=== PATIENT | female | born 1970 | race Caucasian/White ===

== ENCOUNTER 2022-10-01 10:08 | Emergency (ER) | payer BC, SELFPAY ==
[2022-10-01] VITALS (7 sets, daily range): BP systolic 100–126; BP diastolic 67–80; PULSE 85–106; RESP 18; TEMP 36.1; O2SAT 93–97; BMI 38.4
--- NOTE | 2022-10-01 11:56 | CRLHL7_ITS ---
For Patients: As a result of the Century Cures Act, medical imaging exams and procedure reports are released immediately into your electronic medical record. You may view this report before your referring provider. If you have questions, please contact your health care provider. INDICATION: COVID positive, chest pain. TECHNIQUE: Chest 1 view(s) COMPARISON: Chest radiograph dated 07/08/2017. FINDINGS: Cardiomediastinal silhouette and pulmonary vasculature are normal. Haziness with blunting of the left costophrenic angle, may reflect atelectasis, small pleural effusion, or pneumonia. No significant right pleural effusion. No pneumothorax. No acute chest wall abnormality. IMPRESSION: Haziness with blunting of the left costophrenic angle, may reflect atelectasis, small pleural effusion, or pneumonia. Dictated by Sriram Lozada MD @ 10/01/2022 1:29:40 PM (Electronically Signed)
[2022-10-01 12:10] LABS: Basophils Absolute Auto 0.03 K/uL (0.00-0.30); Basophils Percent Auto 0.4 % (0.0-3.0); Eosinophils Absolute Auto 0.02 K/uL (0.00-0.50); Eosinophils Percent Auto 0.2 % (0.0-7.0); Hematocrit 39.1 % (33.0-51.0); Hemoglobin* 12.7 gm/dL (12.0-16.0); Immature Granulocytes Abs Auto 0.01 K/uL (0.00-0.30); Immature Granulocytes Pct Auto 0.1 %; Lymphocytes Percent Auto 15.8 % (20-44); Mean Corpuscular HGB Conc 33 gm/dL (32-36); Mean Corpuscular Hemoglobin 29 pg (26-34); Mean Corpuscular Volume 88 fL (80-100); Monocytes Percent Auto 10.7 % (0.0-11.0); Neutrophils Percent Auto 72.8 % (42.0-72.0); Platelet Count* 262 K/uL (140-440); RDW Coefficient of Variation % 13.3 % (11.5-15.5); Red Blood Count 4.44 m/uL (4.00-5.20)
[2022-10-01 12:12] LABS: Slide Review Reflex No
[2022-10-01 12:25] LABS: Chloride* 105 mmol/L (96-114); Potassium* 3.9 mmol/L (3.6-5.1); Sodium* 136 mmol/L (135-149)
[2022-10-01 12:28] LABS: Creatinine* 0.8 mg/dL (0.5-1.5); Est. Creatinine Clearance* 78.18; Estimated Glomerular Filt Rate 88 ml/min
[2022-10-01 12:29] LABS: Blood Urea Nitrogen* 12 mg/dL (7-30); Calcium* 9.3 mg/dL (8.4-10.6); Carbon Dioxide* 26 mmol/L (20-32); Glucose* 138 mg/dL (60-115)
[2022-10-01 12:32] LABS: C Reactive Protein* 3.4 mg/dL (0.5-1.0)
[2022-10-01 12:34] LABS: D Dimer Quantitative* 0.72 ug/ml (0.00-0.50)
--- NOTE | 2022-10-01 12:42 | ED.DIZZY ---
HPI - Dizziness General Date Seen: 10/01/22 Chief Complaint: Dizziness/Vertigo Stated Complaint: Covid+, chest pain/dizzy Time Seen by Provider: 10/01/22 11:34 Source: patient Mode of arrival: ambulatory Limitations: no limitations History of Present Illness HPI Narrative: Patient is a very nice 52-year-old female presents ambulatory to the emergency room, for evaluation of dizziness, and some chest pressure she has now had since yesterday. She tested COVID positive time at home this a.m., she has had no fevers or chills stuffy nose slight sore throat associated with this, she notes no syncopal at feeling, a little bit of exertional shortness of breath when she moves around more fatigued than anything. Denies any leg swelling, any nausea vomiting, diarrhea, she has no past history of pulmonary emboli DVTs, but does have a history of cardiac risk factors which are hypertension, high cholesterol, maternal grandmother did have heart disease in her early 60s. 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 Has fibromyalgia, hypertension, hyperlipidemia. MD elicited complaint: dizziness Related Data Home Medications Medication Instructions Recorded Confirmed escitalopram oxalate 20 mg tablet 20 mg PO DAILY 10/01/22 10/01/22 lisinopril 10 mg tablet 10 mg PO DAILY 10/01/22 10/01/22 omeprazole 20 mg capsule,delayed 20 mg PO DAILY 10/01/22 10/01/22 release pregabalin 150 mg capsule 150 mg PO 3XD 10/01/22 10/01/22 simvastatin 10 mg tablet 10 mg PO QPM 10/01/22 10/01/22 Previous Rx's Medication Instructions Recorded nirmatrelvir 300 mg (150 mg See Rx Instructions PO .COMPLEX 10/01/22 x2)-ritonavir 100 mg tablet,dose #30 ea pack(EUA) (Paxlovid) Allergies Allergy/AdvReac Type Severity Reaction Status Date / Time No Known Drug Allergies Allergy Verified 10/01/22 10:32 Review of Systems Status of ROS: Reports: 10 or more systems reviewed and unremarkable except as noted in History and below PFSH PFSH Social History Smoking Status: Never smoker Do you use any of these nicotine containing products: None Second hand tobacco smoke exposure: Yes How often do you have a drink containing alcohol: monthly or less How many standard drinks containing alcohol do you have on a typical day: 1 or 2 How often do you have six or more drinks on one occasion: Never AUDIT-C Alcohol total score: 1 Non-prescribed substance use: denies use service: No Exam Narrative: Exam Narrative: Patient is seen in room 7, she is in no apparent distress, Patient is speaking normally, no problem with slurring words, oriented x3. Cranial nerves 3-12 are normal, Head eyes ears nose and throat exam show equal pupils, no scleral icterus, extraocular muscles are normal, no facial droop, speech is normal, trachea normal and midline. Thyroid normal midline palpable not enlarged. Chest shows symmetrical rise bilaterally, normal auscultation with no wheezes, no increased work of breathing, no overt bruising or lesions seen, no tenderness is noted on auscultation. Heart sounds normal with no S3-S4 no murmurs clicks or gallops. Abdomen shows no obvious masses or hepatosplenomegaly, no organomegaly, bowel sounds are normal in all quadrants. No tenderness is noted also in all quadrants. Upper and lower extremities show normal power, normal range of motion, pulses are normal, sensations normal, fine motor movements are normal, pelvis is stable to rocking. Cervical spine shows normal range of motion, and palpably not tender. Thoracic spine shows normal range of motion, and palpably not tender, lumbar spine shows no tenderness to palpation percussion and is otherwise normal range of motion. Skin shows no rashes, petechiae or eccymosis. Const: Vital Signs, click to edit/add: Vital Signs - 24 hr 10/01/22 10:29 10/01/22 12:31 10/01/22 13:02 Temperature 96.9 F L Pulse Rate 87 97 Pulse Rate [Left P ulse Oximeter] 106 H Respiratory Rate 18 Blood Pressure 103/67 100/71 Blood Pressure [Le ft Upper Arm] 124/80 Pulse Oximetry 95 93 95 Oxygen Delivery Me thod Room Air 10/01/22 13:33 10/01/22 14:02 10/01/22 14:31 Temperature Pulse Rate 86 86 85 Pulse Rate [Left P ulse Oximeter] Respiratory Rate Blood Pressure 126/76 119/69 125/75 Blood Pressure [Le ft Upper Arm] Pulse Oximetry 96 97 97 Oxygen Delivery Me thod Documenting provider has reviewed patient's vital signs: yes Course Course Hospital Course: Discussed with the patient that her laboratory tests did show the elevated D-dimer we got subsequently got a chest CT did not show any PE. This is very reassuring, troponins x2 an EKG x2 was also reassuring. With no changes. At this point I think this is all part and parcel with her COVID, I discussed with her the use of Paxil of it of which she would be a candidate for. She is on the simvastatin which will have to be stopped, and then restarted 3 days after she finishes the Paxil of it. After discussion with her the risks benefits and side effects, she would like to proceed. We went over signs and symptoms of worsening of her COVID, and her infectious nature, she will follow up if these occur. Vital Signs Vital signs: Initial Vital Signs Temperature 96.9 F L 10/01/22 10:29 Temperature Source Temporal Artery Scan 10/01/22 10:29 Pulse Rate 106 H 10/01/22 10:29 Pulse Rhythm Regular 10/01/22 10:29 Pulse Strength 3+ Normal 10/01/22 10:29 Respiratory Rate 18 10/01/22 10:29 Blood Pressure 124/80 10/01/22 10:29 Blood Pressure Mean 94 10/01/22 10:29 Blood Pressure Position Sitting 10/01/22 10:29 Pulse Oximetry 95 10/01/22 10:29 Oxygen Delivery Method Room Air 10/01/22 10:29 Vital Signs Temperature 96.9 F L 10/01/22 10:29 Pulse Rate 106 H 10/01/22 10:29 Respiratory Rate 18 10/01/22 10:29 Blood Pressure 124/80 10/01/22 10:29 Pulse Oximetry 95 10/01/22 10:29 Oxygen Delivery Method Room Air 10/01/22 10:29 Temperature 96.9 F L 10/01/22 10:29 Pulse Rate 85 10/01/22 14:31 Respiratory Rate 18 10/01/22 10:29 Blood Pressure 125/75 10/01/22 14:31 Pulse Oximetry 97 10/01/22 14:31 Oxygen Delivery Method Room Air 10/01/22 10:29 MDM - Dizziness MDM Narrative Medical decision making narrative: During the evaluation of this patient I considered multiple differential diagnosis is. The life-threatening differential diagnosis include coronary disease/[place], pulmonary embolism, pneumothorax, pneumonia, and aortic dissection. Other differential diagnosis included but were not limited to pericarditis, myocarditis, chest wall pain, GERD, esophageal rupture, rib fracture contusion, pleurisy, as well as other etiologies. Medical Records Attestation: I reviewed the patient's medical records. Lab Data Attestation: I reviewed the patient's lab results. Labs: Lab Results 10/01/22 10/01/22 Range/Units 12:00 14:39 WBC 8.50 (4.50-11.00) K/uL RBC 4.44 (4.00-5.20) m/uL Hgb 12.7 (12.0-16.0) gm/dL Hct 39.1 (33.0-51.0) % MCV 88 (80-100) fL MCH 29 (26-34) pg MCHC 33 (32-36) gm/dL RDW Coeff of Zena 13.3 (11.5-15.5) % Plt Count 262 (140-440) K/uL Neut % (Auto) 72.8 H (42.0-72.0) % Lymph % (Auto) 15.8 L (20-44) % [place] % (Auto) 10.7 (0.0-11.0) % Eos % (Auto) 0.2 (0.0-7.0) % Baso % (Auto) 0.4 (0.0-3.0) % Neut # (Auto) 6.20 (1.7-7.0) K/uL Lymph # (Auto) 1.30 (0.90-2.90) K/uL [place] # (Auto) 0.90 (0.00-0.90) K/UL Eos # (Auto) 0.02 (0.00-0.50) K/uL Baso # (Auto) 0.03 (0.00-0.30) K/uL D-Dimer Quant (PE/DVT) 0.72 H (0.00-0.50) ug/ml Sodium 136 (135-149) mmol/L Potassium 3.9 (3.6-5.1) mmol/L Chloride 105 (96-114) mmol/L Carbon Dioxide 26 (20-32) mmol/L BUN 12 (7-30) mg/dL Creatinine 0.8 (0.5-1.5) mg/dL Estimated Creat Clear 78.18 Estimated GFR 88 ml/min Glucose 138 H (60-115) mg/dL Calcium 9.3 (8.4-10.6) mg/dL C-Reactive Protein 3.4 H (0.5-1.0) mg/dL POC Troponin I 0.00 L 0.00 L (0.01-0.04) ng/ml Imaging Data CT scan - chest: Attestation: I have reviewed the pertinent imaging results. My impression: Negative chest CT Radiologist's impression: Patient: NICK CHO Facility:?[facility] Patient ID:?[id number] Site Patient ID:?[id number]. Site :?[id number] Study:?CT Chest Angio 95CC ISOVUE 370-10/01/2022 1:37:21 PM Ordering Physician:Zoya Boles Final Report: INDICATION: Shortness of breath, COVID positive. TECHNIQUE: CT chest PE was acquired with 95 cc Isovue 370 IV contrast. COMPARISON: Chest radiographs dated 10/01/2022, 07/08/2017. FINDINGS: Heart and vasculature: No cardiomegaly, no pericardial effusion. No filling defects identified within the main, lobar, and contrast opacified portions of the segmental pulmonary arteries. Lungs and pleura: Subsegmental atelectasis in the base of the lingula and left lower lobe. No focal consolidation. No evidence of pulmonary infarct. 0.2 cm pulmonary nodule in the right upper lobe (series 5, image 50). Thyroid and lower neck: Subcentimeter thyroid nodules are noted. Mediastinum/gurjit: No lymphadenopathy. Chest wall: No axillary lymphadenopathy. Upper abdomen: Too small to characterize hypodense hepatic lesion, likely benign in the absence of a known malignancy. Postcholecystectomy. Bones: Multilevel degenerative changes of the spine. No suspicious/aggressive focal osseous lesion. IMPRESSION: 1. No evidence of acute pulmonary embolus. 2. Subsegmental atelectasis in the base of the lingula and left lower lobe. No focal consolidation. No evidence of pulmonary infarct. 3. 0.2 cm pulmonary nodule in the right upper lobe. Consider optional follow up CT chest in 12 months, per Fleischner guidelines. Please note that all CT scans at this facility use dose modulation, iterative reconstruction, and/or weight-based dosing when appropriate to reduce radiation dose to as low as reasonably achievable. Dictated by Sriram Lozada MD @ 10/01/2022 2:53:24 PM (Electronic Signature) ECG Data Attestation: I personally reviewed and interpreted this ECG as follows: ECG interpretation date: 10/01/22 Interpretation: EKG shows normal sinus rhythm, there is some ST wave flattening laterally, nonspecifically, I will search for normal EKG, no acute change Follow-up EKG shows no change from previous EKG, Discharge Plan Discharge Clinical Impression: COVID-19, Dizziness, Chest pain Patient Disposition: Home, Self-Care Condition: Stable Instructions: Chest Pain (DC), Dizziness (ED), COVID-19 (Coronavirus Disease 2019) (ED) Additional Instructions: Home rest you may use the Paxlovid as directed, you need to stop her simvastatin actually need to wait approximately 12 hours after last dose of simvastatin to to start the Paxil of it. Once you done the Paxlovid then wait 3 days and then restart the simvastatin. The medication really does help, the biggest risk with this medication is the risk of rebound, which happens at approximately 10% of the people. Return here if increasing chest pain shortness of breath or other symptoms, he obviously are contagious for 5-7 days after the symptoms started, please warn others. Activity Level: Light activity Prescriptions: New Paxlovid (EUA) 300 mg (150 mg x 2)-100 mg tablets,dose pack See Rx Instructions .ROUTE .COMPLEX Qty: 30 0RF Rx Instructions: take TWO 150 mg tablets of nirmatrelvir with ONE 100 mg tablet of ritonavir twice daily for 5 days No Action simvastatin 10 mg tablet 10 mg PO QPM lisinopril 10 mg tablet 10 mg PO DAILY omeprazole 20 mg capsule,delayed release(DR/EC) 20 mg PO DAILY escitalopram oxalate 20 mg tablet 20 mg PO DAILY pregabalin 150 mg capsule 150 mg PO 3XD Follow Up/Referrals: Dariana Jean MD [Primary Care Provider] - Stand Alone Forms: [employer] Info Instructions
--- NOTE | 2022-10-01 12:45 | CRLHL7_ITS ---
For Patients: As a result of the Century Cures Act, medical imaging exams and procedure reports are released immediately into your electronic medical record. You may view this report before your referring provider. If you have questions, please contact your health care provider. INDICATION: Shortness of breath, COVID positive. TECHNIQUE: CT chest PE was acquired with 95 cc Isovue 370 IV contrast. COMPARISON: Chest radiographs dated 10/01/2022, 07/08/2017. FINDINGS: Heart and vasculature: No cardiomegaly, no pericardial effusion. No filling defects identified within the main, lobar, and contrast opacified portions of the segmental pulmonary arteries. Lungs and pleura: Subsegmental atelectasis in the base of the lingula and left lower lobe. No focal consolidation. No evidence of pulmonary infarct. 0.2 cm pulmonary nodule in the right upper lobe (series 5, image 50). Thyroid and lower neck: Subcentimeter thyroid nodules are noted. Mediastinum/gurjit: No lymphadenopathy. Chest wall: No axillary lymphadenopathy. Upper abdomen: Too small to characterize hypodense hepatic lesion, likely benign in the absence of a known malignancy. Postcholecystectomy. Bones: Multilevel degenerative changes of the spine. No suspicious/aggressive focal osseous lesion. IMPRESSION: 1. No evidence of acute pulmonary embolus. 2. Subsegmental atelectasis in the base of the lingula and left lower lobe. No focal consolidation. No evidence of pulmonary infarct. 3. 0.2 cm pulmonary nodule in the right upper lobe. Consider optional follow up CT chest in 12 months, per Fleischner guidelines. Please note that all CT scans at this facility use dose modulation, iterative reconstruction, and/or weight-based dosing when appropriate to reduce radiation dose to as low as reasonably achievable. Dictated by Sriram Lozada MD @ 10/01/2022 2:53:24 PM (Electronically Signed)
[2022-10-01] MEDS: 0.9 % SODIUM CHLORIDE 1000 ml 1,000 ML IV (14:21)
== END 2022-10-01 16:23 | disposition home or self-care (01) ==
PROVIDERS: Emergency Provider Family Medicine; PCP Family Medicine
DX: U07.1 COVID-19 (principal); R42 Dizziness and giddiness; R07.9 Chest pain, unspecified
CPT/HCPCS: 36415; 71045; 71260; 80048; 84484; 85025; 85379; 86140; 93005; 96360; 99284; J7030; Q9967

== ENCOUNTER 2024-09-14 17:39 | Outpatient (CLI) | payer BC, SELFPAY | END 2024-09-14 17:40 | disposition home or self-care (01) | LOC: NFLDUCREF 17:48 | PROVIDERS: PCP Family Medicine | DX: R07.89 Other chest pain (principal) | CPT/HCPCS: 84484; 85379 ==

== ENCOUNTER 2024-09-14 19:58 | Emergency (ER) | payer BC, SELFPAY ==
--- OUTSIDE RECORDS SUMMARY | 2024-09-14 20:01 | XMS_ITS | Clinical Summary ---
Author Organization [facility] Address [address] [place] [id number] Care Team Providers Care Extension Service Specialist In Charge Name Role Phone Destiney Childress Primary Care Provider Allergies No known active allergies Medications cholecalciferol (VITAMIN D3) 1,000 unit capsule Take 1 Capsule (1,000 units) by mouth once daily. 0 02/20/20 22 Active escitalopram oxalate 20 mg tabletIndications :Dysthymia Take 1 Tablet (20 mg) by mouth once daily. 90 Tablet 3 5 3:35 PM CDT 10/07/19 24 Active fluticasone (50 mcg per actuation) nasal solution (FLONASE)Indicati ons:Rhinitis, unspecified type Inhale 2 Sprays to both nostrils once daily. 16 g 5 10/07/19 24 Active pregabalin 150 mg capsuleIndication s:Fibromyalgia Take 1 Capsule (150 mg) by mouth two times daily. 180 Capsule 3 5 3:35 PM CDT 10/07/19 24 Active acetaminophen (TYLENOL EXTRA STRGTH) 500 mg tabletIndications :Primary osteoarthritis of right hip Take 2 Tablets (1,000 mg) by mouth every 6 hours. Max acetaminophen dose: 4000mg in 24 hrs. 120 Tablet 4 8:56 AM COMMUNITY PLACEMENT WORKER 06/01/20 24 Active ibuprofen (ADVIL; MOTRIN) 600 mg tabletIndications :Primary osteoarthritis of right hip Take 1 Tablet (600 mg) by mouth every 6 hours. Maximum of 3200 mg in 24 hours. Take with food 60 Tablet 4 8:56 AM COMMUNITY PLACEMENT WORKER 06/01/20 24 Active omeprazole 20 mg Delayed-Release capsuleIndication s:Gastroesophagea l reflux disease, unspecified whether esophagitis present Take 1 Capsule (20 mg) by mouth once daily before a meal. 90 Capsule 2 5 3:52 PM CDT 06/16/19 25 Active lisinopriL 10 mg tabletIndications :HTN (hypertension) Take 1 Tablet (10 mg) by mouth once daily. 90 Tablet 2 5 3:52 PM CDT 06/16/19 25 Active simvastatin 10 mg tabletIndications :Hyperlipidemia, unspecified hyperlipidemia type Take 1 Tablet (10 mg) by mouth at bedtime. 90 Tablet 2 5 3:52 PM CDT 06/16/19 25 Active amoxicillin 500 mg capsuleIndication s:PROPHYLAXIS Take 4 capsules 1 hour prior to dental procedure or colonoscopy 4 Capsule 3 07/14/19 25 Active doxycycline monohydrate 100 mg capsuleIndication s:Sinusitis, unspecified chronicity, unspecified location Take 1 Capsule (100 mg) by mouth two times daily. 10 Capsule 5 5:10 PM COMMUNITY PLACEMENT WORKER 08/03/19 25 Active COVID-19 antigen test (Flowflex COVID-19 Ag Home Test) kit USE DIRECTED ON PACKAGING. 4 Kit 09/14/19 25 025 Discontin ued(Other - add note to specify (E-cancel not sent)) Active Problems Problem Noted Date Diagnosed Date S/p right total hip arthropl martha, DOS: 06/01/[address] Porter 06/14/2024 Primary osteoarthritis of right hip 06/01/2024 HTN (hypertension) 06/01/2024 S/P arthroscopy of left shoulder 11/11/2023 Nontraumatic complete tear of left rotator cuff 07/24/2023 Subacromial impingement of left shoulder 024 Subacromial bursitis of left shoulder joint 07/2023 Arthritis of left acromioclavicular joint 2023 Tendinitis of long head of biceps 06/17/2023 Hyperlipemia, mixed 03/05/2022 Depressive state 03/05/2022 Fibromyalgia 03/05/2022 L5-S1 left sided disc protrusion 06/17/2013 Resolved Problems Problem Noted Date Diagnosed Date Resolved Date Status post total left knee replacement 04/30/2022 07/31/2022 Hypotension 03/05/2022 07/31/2022 S/P left knee surgery 03/05/20222022 Dysthymia 03/05/2022 07/31/2022 Immunodeficiency 09/07/2021 07/31/2022 L4-5 right sided disc injury 06/17/2013 05/13/2023 Overview (06/17/2013): Primary osteoarthritis of left knee 07/31/2022 Encounters Date Type Department Care Team Description 08/03/2024 12:35 PM COMMUNITY PLACEMENT WORKER Telemedicine [facility] [address] [place] [address] Emma Estrada NP Telehealth (VV no vitals taken); Sinus Problem 07/14/2024 10:00 AM COMMUNITY PLACEMENT WORKER Office Visit [facility] [id number] [place] [phone] Jose Porter MD Surgical Followup (S/p right total hip arthroplasty, DOS: 06/01/[address] Porter) 07/14/2024 Travel 06/17/2024 9:05 AM COMMUNITY PLACEMENT WORKER Ancillary Procedure [address] [address] 06/17/2024 9:00 AM COMMUNITY PLACEMENT WORKER Office Visit [address] [address] Ankita Winters PA Surgical Followup (S/p right total hip arthroplasty, DOS: 06/01/[address] Porter) 06/16/2024 Travel from Last 3 Months Immunizations Immunization Administration Dates Next Due COVID-19 VACCINE SPIKEVAX (M ODERNA 50MCG/0.5ML) 12YO+ PFS 04/19/2024,04/02/2023 COVID-19 vaccine (Pfizer-Bio NTech 30mcg/0.3mL) 12YO+ BIVALENT PF, MDV 04/19/2022 COVID-19 vaccine (Pfizer-Bio NTech 30mcg/0.3mL) 12YO+ DEANNE-SUCROSE PF, MDV 10/03/2021 COVID-19 vaccine (Cubeyou NTech 30mcg/0.3mL) PF, MDV 03/13/2021,07/27/2020,07/06/2020 INFLUENZA, IIV3 PF (AGE >= 6 MO) 04/19/2024 Influenza A (H1N1), Inactiva santos (Age >=3 Years) 04/20/2009 Influenza, IIV3 (Age 6-35 mos) 4,03/24/2013,05/03/2011,2008 Influenza, IIV3 (Age >=3 years) 03/21/2012,04/30,05/09/2003 Influenza, IIV4 04/02/2023, 2,03/13/2021,2018,03/16/2019,04/25/2017 Influenza,CCIIV4 PRESERV FREE 05/16/2020 Td (Age >=7 Years) 10/02/2004 Tdap 11/30/2015 Tetanus/Diptheria 10/02/2004 Zoster (Shingrix-RZV, recombinant) 05/16/2020,,02/11/2020 Family History Medical History Relation Name Comments Alcoholism Brother 1 Allergies Brother 2 Cancer Father non-hodgekins l ymphoma of lungs Hypertension Father Cancer Maternal Aunt found post mor dem, unsure where cancer was Cancer-breast Maternal Aunt Brain Aneurysm Maternal Grandmother Stroke Maternal Grandmother Brain Aneurysm Maternal Uncle Cancer Mother unsure of prima ry source, mom passed suddenly from cancer Brain Aneurysm Other maternal cous in Good Health Son 1 Good Health Son 2 Cancer-ovarian No Family History Relation Name Status Comments Brother 1 Brother 2 Alive Father Maternal Aunt Maternal Grandmother (Age 60) Maternal Uncle Alive Mother Other Son 1 Son 2 Social History Tobacco Use Types Packs/Day Years Used Date Smoking Tobacco: Never Smokeless Tobacco: Never Tobacco Cessation:Counseling Given: Yes Alcohol Use Standard Drinks/Week Comments Not Currently 0 (1 standard drink = 0.6 oz pur e alcohol) social PHQ-2 Answer Date Recorded PHQ-2 TOTAL SCORE 1 09/07/2021 Social Connections Answer Date Recorded Do you often feel lonely or isolated from those around you? 0 10/07/2023 Financial Resource Strain Answer Date R ecorded Difficulty of Paying Living Expenses 3 10/07/2023 Difficulty of Paying Living Expenses Not on file 10/07/2023 Food Insecurity Answer Date Recorded Do you worry your food will run out before you are able to buy more? 1 10/07/2023 Transportation Needs Answer Date Record ed Does lack of transportation keep you from medica l appointments? 1 10/07/2023 Does lack of transportation keep you from work, meetings or getting things that you need? 1 10/07/2023 Housing Stability Answer Date Recorded What is your housing situation today? 1 10/07/2023 Utilities Answer Date Recorded Do you have trouble paying f or utilities (for example, heat, electricity, water, phone)? 1 10/07/2023 Comments No Sex and Gender Information Value Date Recorded Sex Assigned at Not on file Legal Sex Female 5:42 AM COMMUNITY PLACEMENT WORKER Gender Identity Not on file Sexual Orientation Not on file Obstetrics History Last Filed Vital Signs Vital Sign Reading Time Taken Comments Blood Pressure 105/56 06/02/2024 7:49 AM COMMUNITY PLACEMENT WORKER Pulse 64 06/02/2024 7:49 AM COMMUNITY PLACEMENT WORKER Temperature 37.1 C (98.7 F) 06/02/2024 7:49 AM COMMUNITY PLACEMENT WORKER Respiratory Rate 16 06/02/2024 7:49 AM COMMUNITY PLACEMENT WORKER Oxygen Saturation 93% 06/02/2024 7:49 AM COMMUNITY PLACEMENT WORKER Inhaled Oxygen Concentration - - Weight 122.9 kg (270 lb 15.1 oz) 2023 11:01 AM COMMUNITY PLACEMENT WORKER Height 167.6 cm (5' 6) 06/01/2024 11:0 1 AM COMMUNITY PLACEMENT WORKER Body Mass Index 43.73 06/01/2024 11:01 AM COMMUNITY PLACEMENT WORKER Plan of Treatment Upcoming Encounters Date Type Department Care Team (Late st Contact Info) Description 09/29/2024 7:50 AM CDT Office Visit [facility] [address] [facility] [place] [address] Destiney Childress PA [address] [place] [address] Health Maintenance Due Date Last Done Comments HIV for age 15-65 02/06/1983 Pneumococcal series for age 50+ (1 of 1 - PCV) 02/06/2018 Pap test for age 21-65 06/29/2022 , 06/29/2019, 06/06/2017, Additional history exists Depression screening for age 12+ 09/07/2022 09/08/19 BMI (ht and wt on same day) for age 18+ 10/06/2024 10/07/2023, 07/08/2023, 07/31/2022, Additional history exists Mammogram for age 45-75 10/19/2024 10/20/19 24, 10/14/2022, 09/14/2021, Additional history exists Tetanus booster 11/29/2025 11/30/2015, 10/02/2004 Colonoscopy through age 75 06/03/2026 06/03/2016, Lipids for age 45-75 10/06/2028 10/07/2023, 07/31/2022, 09/07/2021, Additional history exists Tdap Completed 11/30/2015 Zoster (shingles) series for age 50+ Completed 05/16/2020, 02/24/2020, 02/11/2020 Hepatitis C screening for ag e 18-79 Completed 04/19/2022 COVID-19 vaccine series Completed 04/19/20, 04/02/2023, 04/19/2022, Additional history exists Influenza Vaccine Completed 04/19/2024, , 04/19/2022, Additional history exists Medical Devices Implanted Type Area Design Engineer Device Identifier Shelf Expiration Date Model / Serial / Lot Cmnt Bone [facility]gm [facility] [id number] Implanted:Qty: 2 on 03/05/2022 by Jose Porter MD at [facility] Left: Knee [employer] 11/13/2025 [id number] / / [id number] Bi Cruciate Stabilized Jouney Ii Femoral Component Implanted:Qty: 1 on 03/05/2022 by Jose Porter MD at [facility] Left: Knee [employer] 12/30/2031 [id number] / / [id number] Jouney Nonporous Tibial Baseplate Implanted:Qty: 1 on 03/05/2022 by Jose Porter MD at [facility] Left: Knee [employer] 07/09/2031 [id number] / / [id number] 12 Mm Jouney Ii Bcs Xlpe Articular Insert Implanted:Qty: 1 on 03/05/2022 by Jose Porter MD at [facility] Left: Knee [employer] 03/28/2028 [id number] / / [id number] Hannah Ii Resurfacing Patellar Component Implanted:Qty: 1 on 03/05/2022 by Jose Porter MD at [facility] Left: Knee [employer] [id number] / / [id number] Sys Ancr Sut 4.75mm Biocomposite - [id number] Implanted:Qty: 1 on 07/23/2023 by Fuad Rodriguez MD at [facility] Left: Shoulder [employer] 02/13/2027 [id number]-[id number] / / [id number] Ancr Sut 4.75x19.1mm Biocomp Swivelock C Vented Closed Wht-B - [id number] Implanted:Qty: 1 on 07/23/2023 by Fuad Rodriguez MD at [facility] Left: Shoulder [employer] 04/15/2027 [id number] T / / [id number] 1 Screw Hip 6.5x30mm Fermin Low Profile Hex - [id number] Implanted:Qty: 1 on 06/01/2024 by Jose Porter MD at [facility] Right: Hip [employer] 03/17/2029 [id number] / / [id number] Stem Fem 105mm Sz 5 Std Offset Insignia Collared - [id number] Implanted:Qty: 1 on 06/01/2024 by Jose Porter MD at [facility] Right: Hip [employer] 12/24/2028 [id number] / / [id number] Head Hip Od28mm -4 Biolox Delta C-Taper Alumina Cer - [id number] Implanted:Qty: 1 on 06/01/2024 by Jose Porter MD at [facility] Right: Hip [employer] 09/06/2028 [id number] / / [id number] Mdm X3 Insert For Mdm Liner 28mm Id 38mm Od Nicole 38d Implanted:Qty: 1 on 06/01/2024 by Jose Porter MD at [facility] Right: Hip [employer] 12/07/2028 7236-2-844 / / [id number] Shell Hip 50d Trident Ii Clusterhole Tritanium - [id number] Implanted:Qty: 1 on 06/01/2024 by Jose Porter MD at [facility] Right: Hip [employer] 03/22/2029 [id number] / / [id number] Liner Hip Id38mm Sz B Mdmx3 Cocr - [id number] Implanted:Qty: 1 on 06/01/2024 by Jose Porter MD at [facility] Right: Hip [employer] 08/01/2027 [id number] / / [id number] Procedures Procedure Name Priority Date/Time Associated Diagnosis Comments XR HIP 1 VIEW W PELVIS RIGHT Routine 06/17/2024 8:59 AM COMMUNITY PLACEMENT WORKER S/p right total hip arthroplasty, DOS: 06/01/[address] Porter XR MAMMO ESTEFANIA BILAT SCREEN Routine 10/20/2023 11:43 AM CDT Visit for screening mammogram LIPID PANEL W REFLEX MEASURED LDL Routine 10/07/2023 10:23 AM CDT Screening cholesterol level ANTI HCV Routine 04/19/2022 12:15 PM CDT Need for hepatitis C screening test BRUSH MAKER THIN PREP PAP SCREEN IMAGED Routine 06/29/2019 8:00 AM COMMUNITY PLACEMENT WORKER SCAN-COLONOSCOPY 06/03/2016 12:0 0 AM COMMUNITY PLACEMENT WORKER from Last 3 Months or Most Recently Relevant to Health Maintenance Results * XR HIP 1 VIEW W PELVIS RIGHT (06/17/2024 8:59 AM COMMUNITY PLACEMENT WORKER) Anatomical Region Laterality Modality HIPS, HIPR, Pelvis Digital Radio graphy Impressions 06/17/2024 9:19 AM COMMUNITY PLACEMENT WORKER Stable right total hip arthroplasty without complication Moderate osteoarthritis of the left hip Ankita Winters PA-C 06/17/2024 Narrative 06/17/2024 9:19 AM COMMUNITY PLACEMENT WORKER This radiology exam was performed at [facility] and interpreted by Ankita Winters PA-C HISTORY: A 54 y.o. year - old female with history of right total hip arthroplasty Technique: Two views of the right hip were obtained today including: low AP pelvis and frog leg lateral views. Findings: RIGHT HIP: Right total hip arthroplasty in acceptable alignment. No change in position as compared to previous films with no obvious evidence of loosening. Good christianity of leg length, hip center and offset. No evidence of acute fracture or dislocation. LEFT HIP: Moderate joint space narrowing of the left hip with evidence of subchondral sclerosis, subchondral cyst formation, and osteophyte formation. No acute fracture or dislocation. us Ankita [facility] Final Re sult * XR MAMMO ESTEFANIA BILAT SCREEN (10/20/2023 11:43 AM CDT) Anatomical Region Laterality Modality BREASTS, Breast Left, Breast Right Bilateral Mammography Impressions 10/21/2023 2:27 PM CDT There is no radiographic evidence for malignancy. Recommend annual mammograms. MAMMOGRAM ASSESSMENT: ACR 1 Negative PATIENTS: You will also receive a letter with your examination results in an easy to read format. If you have questions about your results, please contact your referring provider. Narrative 10/21/2023 2:27 PM CDT For Patients: As a result of the 21st Century Cures Act, medical imaging exams and procedure reports are released immediately into your electronic medical record. You may view this report before your referring provider. If you have questions, please contact your health care provider. XR MAMMO ESTEFANIA BILAT SCREEN [[id number]] CLINICAL HISTORY: This is an asymptomatic 53 y.o. patient. INDICATION FOR EXAM: Mammogram Screening. TECHNIQUE: CC & MLO views were obtained. This study was evaluated with the assistance of Computer-Aided Detection. Breast Tomosynthesis was used in interpretation. COMPARISON FILM: Yes 10/14/22 [facility] 09/14/21 [facility] FINDINGS: The breasts are heterogeneously dense, which may obscure small masses. There are no dominant masses, suspicious micro calcifications or areas of architectural distortion. Destiney BLACKMON MAMMO Final R esult * (ABNORMAL) LIPID PANEL W REFLEX MEASURED LDL (10/07/2023 10:23 AM CDT) CHOLESTEROL,TOTAL 212(H) 100 - 199 mg/dL 10/07/2023 7:57 PM CDT [facility] Comment: Cholesterol, Total Reference Ranges Desirable <200 mg/dL Borderline 200-239 mg/dL High >=240 mg/dL TRIGLYCERIDES 148 <150 mg/dL 10/07/2023 7:57 PM CDT [facility] HDL CHOLESTEROL 60 >40 mg/dL 7:57 PM CDT [facility] NON-HDL CHOLESTEROL 152(H) <145 mg/dl 10/07/2023 7:57 PM CDT [facility] CHOL/HDL RATIO 3.53 <4.50 10/07/2023 7:57 PM CDT [facility] LDL CHOLESTEROL 122 <=130 mg/dL 10/07/2023 7:57 PM CDT [facility] VLDL CHOLESTEROL 30 <=30 mg/dL 10/07/2023 7:57 PM CDT [facility] PROVIDER ORDERED STATUS RANDOM 10/07/2023 7:57 PM CDT [facility] Blood BLOOD SPECIMEN / Unknown Venipuncture / Unknown 10/07/2023 10:23 AM CDT 10/07/2023 10:23 AM CDT Destiney BLACKMON CHEMISTRY Final R esult [facility] [address] [place] [address], [place] * ANTI HCV (04/19/2022 12:15 PM CDT) HEPATITIS C ANTIBODY Non-React sheron Non-React sheron 04/20/2022 5:09 AM CDT [facility] Comment:Antibodies to HCV no t detected; does not exclude the possibility of exposure to HCV. Blood BLOOD SPECIMEN / Unknown Venipuncture / Unknown 04/19/2022 12:15 PM CDT 04/19/2022 12:18 PM CDT us Destiney BLACKMON SEND OUTS Final R esult [facility] [address] [place] [address], [place] * BRUSH MAKER THIN PREP PAP SCREEN IMAGED (06/29/2019 8:00 AM COMMUNITY PLACEMENT WORKER) Case Report Gynecologic Cytology Report Case: [id number] Authorizing Provider: Dariana Jean MD Collected: 06/29/2019 0800 Ordering Location: [facility] Received: 06/30/2019 0903 First Screen: Katharine Lyon Specimen: BRUSH MAKER ThinPrep Vial Screening, Cervical/Vaginal 07/08/2019 2:56 PM COMMUNITY PLACEMENT WORKER [facility] INTERPRETATION/ RESULT NEGATIVE FOR INTRAEPITHELIAL LESION OR MALIGNANCY (NIL) (none) 07/08/2019 2:56 PM COMMUNITY PLACEMENT WORKER [facility] at 1456 COMMUNITY PLACEMENT WORKER SPECIMEN ADEQUACY Satisfactory for evaluation Endocervical component present 07/08/2019 2:56 PM COMMUNITY PLACEMENT WORKER [facility] HPV REQUEST HPV and PAP 07/08/2019 2:56 PM COMMUNITY PLACEMENT WORKER [facility] [employer] [facility] Date of LMP 06/16/2019 07/08/2019 2:56 PM COMMUNITY PLACEMENT WORKER [facility] Additional Information 07/08/2019 2:56 PM COMMUNITY PLACEMENT WORKER [facility] [employer] [facility] Comment: Interpreted at [facility] - [address], [place] [address] Automated Review Successful 07/08/2019 2:56 PM COMMUNITY PLACEMENT WORKER [facility] Comment:Specimen processed s uccessfully by automated draw in hand device, ThinPrep Imaging System, [employer] ANCILLARY TESTING BRUSH MAKER HPV Ordered, Please see separate report 07/08/2019 2:56 PM COMMUNITY PLACEMENT WORKER [facility] Note The pap test is a screening technique, not a diagnostic procedure. It is used primarily to screen for squamous cancers and precursor lesions. Published studies have shown that it is subject to both false negative and false positive results. The pap test should not be used as the sole means to diagnose or exclude pre-malignant and malignant lesions. 07/08/2019 2:56 PM COMMUNITY PLACEMENT WORKER [facility] Other (Cervical/Vagina l) 06/29/2019 8:00 AM COMMUNITY PLACEMENT WORKER 06/30/2019 9:03 AM COMMUNITY PLACEMENT WORKER Dariana Jean MD PATHOLOGY/CYTOLOGY Final Result [facility] [address] [place] [address], [place] * SCAN-COLONOSCOPY (06/03/2016 12:00 AM COMMUNITY PLACEMENT WORKER) us Scanner OTHER Final Result from Last 3 Months or Most Recently Relevant to Health Maintenance Insurance [facility] AD[facility] Advance Directives * Full Code (Latest Code Status on File) Date Activated Date Inactivated Comments 06/01/2024 2:51 PM 06/02/2024 3:15 PM Question Answer Comments Code Status Discussion: Unable to Assess Preferences, Provider to review later * Full Code Date Activated Date Inactivated Comments 06/01/2024 10:38 AM 06/01/2024 2:51 PM Question Answer Comments Code Status Discussion: Not Discussed * Full Code Date Activated Date Inactivated Comments 07/23/2023 9:30 AM 07/23/2023 8:15 PM Question Answer Comments Code Status Discussion: Unable to Assess Preferences, Provider to review later * Full Code Date Activated Date Inactivated Comments 03/05/2022 5:43 AM 03/06/2022 2:49 PM Question Answer Comments Code Status Discussion: Not Discussed Care Teams Extension Service Specialist In Charge Relationship Specialty Start Date End Date Destiney Childress PA [address] [place] [address] PCP - General Physician Child Caregiver Private Home 07/03/23
[2024-09-14 20:05] VITALS: BP 148/90; PULSE 86; RESP 20; TEMP 36.4; O2SAT 97; BMI 41.5
--- NOTE | 2024-09-14 20:14 | ED_ITS ---
HPI - General Adult General Chief complaint: Shortness of Breath/Dyspnea Stated complaint: possible blood clot in lung Time Seen by Provider: 09/14/24 20:14 History of Present Illness HPI narrative: Patient presents to the emergency department after being sent from urgent care for DVT rule out. Patient has had a cough, chest heaviness, shortness of breath for the last 2 days. Patient recently flew to [place] and back. Patient states she had elevated d dimer in the clinic. 54-year-old woman presenting to the emergency part with concern of shortness of breath Two days of cold symptoms with cough and some sore throat. Has noted herself to be little wheezy as well. Some chest heaviness. In earlier today at urgent care. She has no leg pain. Was checked for D-dimer apparently in clinic/urgent care and this was noted to be elevated. Was screened for COVID influenza and RSV and all were negative. Even strep was negative. Finding records D-dimer was 1.01. Was actually categorized/calculated with a Wells criteria of 0. Given albuterol inhaler as a prescription and recommended for qpwf-avi-pbmwtiu medications otherwise. Arrives here oxygenating 97% and respirations of 20 Had COVID diagnosis apparently again this June. Has had cough on and off since July essentially the last 8 weeks. Was treated at what point with what sounds like a course of azithromycin; she notes it was 5 days of antibiotics. Reviewing records in the past after a COVID diagnosis in 2022 had a D-dimer of 0.[address] imaging at that time was negative for PE. She did however have a pulmonary nodule in the right upper lobe with recommendations to ?consider optional ? CT chest in 12 months. Reviewing history would indicate particular low risk regarding this pulmonary nodule. Related Data Home Medications ?Medication ?Instructions ?Recorded ?Confirmed escitalopram oxalate 20 mg tablet 20 mg PO DAILY 10/01/22 09/14/24 lisinopril 10 mg tablet 10 mg PO DAILY 10/01/22 09/14/24 omeprazole 20 mg capsule,delayed 20 mg PO DAILY 10/01/22 09/14/24 release pregabalin 150 mg capsule 150 mg PO 3XD 10/01/22 09/14/24 simvastatin 10 mg tablet 10 mg PO QPM 10/01/22 09/14/24 meloxicam 15 mg tablet 7.5 mg PO BID 09/14/24 09/14/24 Previous Rx's ?Medication ?Instructions ?Recorded albuterol sulfate 90 mcg/actuation 2 puff inhalation Q4-6H PRN 09/14/24 aerosol inhaler shortness of breath or wheezing #6.7 grams benzonatate 200 mg capsule 200 mg PO TID PRN cough #21 caps 09/14/24 doxycycline hyclate 100 mg tablet 100 mg PO BID 10 days #20 tabs 09/14/24 Allergies Allergy/AdvReac Type Severity Reaction Status Date / Time No Known Drug Allergies Allergy Verified 09/14/24 21:24 Review of Systems Status of ROS: Reports: 6 or more systems reviewed and unremarkable except as noted in History and below [facility] Social History Smoking Status: Never smoker Do you use any of these nicotine containing products: None Second hand tobacco smoke exposure: Yes How often do you have a drink containing alcohol: monthly or less How many standard drinks containing alcohol do you have on a typical day: 1 or 2 How often do you have six or more drinks on one occasion: Never AUDIT-C Alcohol total score: 1 Non-prescribed substance use: denies use service: No Exam Narrative: Exam Narrative: Does sound congested. Lungs actually are clear but seems to have some upper airway coarseness, near wheeze, audible outside of auscultation. Extremities are without edema. She is well-perfused. Negative Homans. Heart in regular rate and rhythm work. No supraclavicular crepitus. Frequently with small cough as if has a throat tickle. Const: Vital Signs, click to edit/add: Vital Signs - 24 hr 09/14/24 20:05 Temperature 97.5 F L Pulse Rate [Right Pulse Oximeter] 86 Respiratory Rate 20 Blood Pressure [Ri ght Upper Arm] 148/90 H Pulse Oximetry 97 Oxygen Delivery Me thod Room Air Documenting provider has reviewed patient's vital signs: yes Course Vital Signs Vital signs: Initial Vital Signs Temperature 97.5 F L 09/14/24 20:05 Temperature Source Temporal Artery Scan 09/14/24 20:05 Pulse Rate 86 09/14/24 20:05 Pulse Rhythm Regular 09/14/24 20:05 Pulse Strength 3+ Normal 09/14/24 20:05 Respiratory Rate 20 09/14/24 20:05 Blood Pressure 148/90 H 09/14/24 20:05 Blood Pressure Mean 109 H 09/14/24 20:05 Blood Pressure Position Sitting 09/14/24 20:05 Pulse Oximetry 97 09/14/24 20:05 Oxygen Delivery Method Room Air 09/14/24 20:05 Vital Signs Temperature 97.5 F L 09/14/24 20:05 Pulse Rate 86 09/14/24 20:05 Respiratory Rate 20 09/14/24 20:05 Blood Pressure 148/90 H 09/14/24 20:05 Pulse Oximetry 97 09/14/24 20:05 Oxygen Delivery Method Room Air 09/14/24 20:05 Temperature 97.5 F L 09/14/24 20:05 Pulse Rate 86 09/14/24 20:05 Respiratory Rate 20 09/14/24 20:05 Blood Pressure 148/90 H 09/14/24 20:05 Pulse Oximetry 97 09/14/24 20:05 Oxygen Delivery Method Room Air 09/14/24 20:05 Medications Administered Medications: Discontinued Medications Generic Name Dose Route Start Last Admin Trade Name Freq PRN Reason Stop Dose Admin Benzonatate 200 mg 09/14/24 22:23 09/14/24 22:33 Benzonatate 100 Mg Capsule PO 09/14/24 22:24 200 mg ONCE ONE Administration Sodium Chloride 500 mls @ 1,000 mls/hr 09/14/24 20:52 09/14/24 22:33 0.9 % Sodium Chloride 500 Ml IV 09/14/24 21:21 Infused .Q30M ONE Infusion Medical Decision Making MDM Narrative Medical decision making narrative: I did discuss how I think pulmonary embolus is rather unlikely. I think the pressure she is experiencing is inflammatory changes consistent with ?bronchitis? for lack of better diagnosis. Considering follow-up for pulmonary nodule is suggested following prior imaging though again I think is quite low risk, perhaps this is more weight to check CT imaging. Did discuss just doing basic chest x-ray to evaluate for potential pneumonia. Was screened negative for COVID, influenza, RSV earlier I did review otherwise unremarkable labs from earlier today. No CBC but a not sure that doing this would change workup or treatment. After discussion of options, Tete would like to proceed with CT imaging. I did review imaging personally. Left-sided small opacities. See radiology over-read below Indication: Cough and elevated D-dimer Technique: Postcontrast CTA of the chest following 95 mL Isovue 370 IV contrast. Axial MIP images obtained. Comparison: None Findings: Pulmonary arteries: No pulmonary embolism appreciated. Lungs: Patchy opacities in the left upper lobe and lingula. No effusion. No pneumothorax. Mediastinum: No acute abnormality appreciated. Lymph nodes: No gross lymphadenopathy. Upper abdomen: Cholecystectomy. Soft tissues: No acute abnormality appreciated. Bones: No acute abnormality appreciated. Impression: Patchy opacities in the left upper lobe and lingula suspicious for an infectious or inflammatory process. Follow-up CT in 3 months recommended. No other acute abnormality appreciated. Please note that all CT scans at this facility use dose modulation, iterative reconstruction, and/or weight-based dosing when appropriate to reduce radiation dose to as low as reasonably achievable. Dictated by Navdeep Vela MD @ 09/14/2024 9:43:11 PM I would start treatment as inflammatory process i.e. bronchitis as primary problem. If not turning the corner in a couple of days will make available antibiotic. See patient discharge plan for further discussion Stay well-hydrated. Consider sleeping under the mist of a cool mist humidifier. Sleep with head of bed little elevated. Pseudoephedrine might be helpful for drying/decongestion and therefore with cough. Could continue with Chloraseptic or Sucrets. Continue sucking on ice chips to help with this cough. Prescribing a course of prednisone from [facility] and some benzonatate (Tessalon Perles) for cough. If not improving in 2 maybe 3 days, another course of antibiotics will be available for you. Doxycycline will be waiting for you at the pharmacy. Be aware that lisinopril can cause a chronic cough requiring discontinuation of this medicine however in your case I favor infectious/inflammatory cause. Medical Records Medical records reviewed: Yes I reviewed the patient's medical records Lab Data Lab results reviewed: Yes I reviewed the patient's lab results Discharge Plan Discharge Clinical Impression: Cough, Bronchitis Patient Disposition: Home, Self-Care Condition: Stable Additional Instructions: Stay well-hydrated. Consider sleeping under the mist of a cool mist humidifier. Sleep with head of bed little elevated. Pseudoephedrine might be helpful for drying/decongestion and therefore with cough. Could continue with Chloraseptic or Sucrets. Continue sucking on ice chips to help with this cough. Prescribing a course of prednisone from [facility] and some benzonatate (Tessalon Perles) for cough. If not improving in 2 maybe 3 days, another course of antibiotics will be available for you. Doxycycline will be waiting for you at the pharmacy. Be aware that lisinopril can cause a chronic cough requiring discontinuation of this medicine however in your case I favor infectious/inflammatory cause. Prescriptions: New benzonatate 200 mg capsule 200 mg PO TID PRN (Reason: cough) Qty: 21 0RF doxycycline hyclate 100 mg tablet 100 mg PO BID 10 Days Qty: 20 0RF No Action albuterol sulfate 90 mcg/actuation HFA aerosol inhaler 2 puff inhalation Q4-6H PRN (Reason: shortness of breath or wheezing) Qty: 6.7 0RF meloxicam 15 mg tablet 7.5 mg PO BID simvastatin 10 mg tablet 10 mg PO QPM lisinopril 10 mg tablet 10 mg PO DAILY omeprazole 20 mg capsule,delayed release(DR/EC) 20 mg PO DAILY escitalopram oxalate 20 mg tablet 20 mg PO DAILY pregabalin 150 mg capsule 150 mg PO 3XD Follow Up/Referrals: Dariana Jean MD [Primary Care Provider] - Stand Alone Forms: velingo Info Instructions
--- NOTE | 2024-09-14 20:52 | CRLHL7_ITS ---
For Patients: As a result of the Century Cures Act, medical imaging exams and procedure reports are released immediately into your electronic medical record. You may view this report before your referring provider. If you have questions, please contact your health care provider. Indication: Cough and elevated D-dimer Technique: Postcontrast CTA of the chest following 95 mL Isovue 370 IV contrast. Axial MIP images obtained. Comparison: None Findings: Pulmonary arteries: No pulmonary embolism appreciated. Lungs: Patchy opacities in the left upper lobe and lingula. No effusion. No pneumothorax. Mediastinum: No acute abnormality appreciated. Lymph nodes: No gross lymphadenopathy. Upper abdomen: Cholecystectomy. Soft tissues: No acute abnormality appreciated. Bones: No acute abnormality appreciated. Impression: Patchy opacities in the left upper lobe and lingula suspicious for an infectious or inflammatory process. Follow-up CT in 3 months recommended. No other acute abnormality appreciated. Please note that all CT scans at this facility use dose modulation, iterative reconstruction, and/or weight-based dosing when appropriate to reduce radiation dose to as low as reasonably achievable. Dictated by Navdeep Vela MD @ 09/14/2024 9:43:11 PM (Electronically Signed)
--- OUTSIDE RECORDS SUMMARY | 2024-09-14 21:03 | XMS_ITS | Clinical Summary ---
Author Organization [email or web address] Address [address] [place] [id number] Care Team Providers Care Water Filtration Technician Name Role Phone Destiney Childress Primary Care [...] 24 hrs. 120 Tablet 4 8:56 AM CASH MANAGEMENT SPECIALIST 06/01/20 24 Active ibuprofen (ADVIL; MOTRIN) 600 mg tabletIndications :Primary osteoarthritis of right hip Take 1 Tablet (600 mg) by mouth every 6 hours. Maximum of 3200 mg in 24 hours. Take with food 60 Tablet 4 8:56 AM CASH MANAGEMENT SPECIALIST 06/01/20 24 Active omeprazole 20 mg Delayed-Release [...] times daily. 10 Capsule 5 5:10 PM CASH MANAGEMENT SPECIALIST 08/03/19 25 Active COVID-19 antigen test (Flowflex [...] Department Care Team Description 08/03/2024 12:35 PM CASH MANAGEMENT SPECIALIST Telemedicine [facility] [address] [place] [address] Emma Estrada NP Telehealth (VV no vitals taken); Sinus Problem 07/14/2024 10:00 AM CASH MANAGEMENT SPECIALIST Office Visit [facility] [id number] [place] [phone] Jose Porter MD Surgical Followup (S/p right total hip arthroplasty, DOS: 06/01/[address] Porter) 07/14/2024 Travel 06/17/2024 9:05 AM CASH MANAGEMENT SPECIALIST Ancillary Procedure [address] [address] 06/17/2024 9:00 AM CASH MANAGEMENT SPECIALIST Office Visit [address] [address] Ankita Winters PA Surgical Followup (S/p right total hip arthroplasty, DOS: 06/01/[address] Porter) 06/16/2024 Travel from Last 3 Months Immunizations Immunization Administration Dates Next Due COVID-19 VACCINE SPIKEVAX (M ODERNA 50MCG/0.5ML) 12YO+ PFS 04/19/2024,04/02/2023 COVID-19 vaccine (Pfizer-Bio NTech 30mcg/0.3mL) 12YO+ BIVALENT PF, MDV 04/19/2022 COVID-19 vaccine (Pfizer-Bio NTech 30mcg/0.3mL) 12YO+ DEANNE-SUCROSE PF, MDV 10/03/2021 COVID-19 vaccine (Naubo NTech 30mcg/0.3mL) PF, MDV 03/13/2021,07/27/2020,07/06/2020 INFLUENZA, IIV3 [...] on file Legal Sex Female 5:42 AM CASH MANAGEMENT SPECIALIST Gender Identity Not on file Sexual Orientation Not on file Obstetrics History Last Filed Vital Signs Vital Sign Reading Time Taken Comments Blood Pressure 105/56 06/02/2024 7:49 AM CASH MANAGEMENT SPECIALIST Pulse 64 06/02/2024 7:49 AM CASH MANAGEMENT SPECIALIST Temperature 37.1 C (98.7 F) 06/02/2024 7:49 AM CASH MANAGEMENT SPECIALIST Respiratory Rate 16 06/02/2024 7:49 AM CASH MANAGEMENT SPECIALIST Oxygen Saturation 93% 06/02/2024 7:49 AM CASH MANAGEMENT SPECIALIST Inhaled Oxygen Concentration - - Weight 122.9 kg (270 lb 15.1 oz) 2023 11:01 AM CASH MANAGEMENT SPECIALIST Height 167.6 cm (5' 6) 06/01/2024 11:0 1 AM CASH MANAGEMENT SPECIALIST Body Mass Index 43.73 06/01/2024 11:01 AM CASH MANAGEMENT SPECIALIST Plan of Treatment Upcoming Encounters Date Type Department Care Team (Late st Contact Info) Description 09/29/2024 7:50 AM CDT Office Visit [facility] [address] [place] [address] Destiney Childress PA [address] [place] [address] Health Maintenance Due Date Last Done Comments [...] history exists Medical Devices Implanted Type Area Hide And Skin Processing Worker Device Identifier Shelf Expiration Date Model / Serial / Lot Cmnt Bone 40gm [facility] Ab - [id number] Implanted:Qty: 2 on 03/05/2022 by Jose Porter MD at [facility] Left: Knee [employer] 11/13/2025 [id number] / / [id number] Bi Cruciate Stabilized Jouney Ii Femoral Component Implanted:Qty: 1 on 03/05/2022 by Jose Porter MD at [facility] Left: Knee [employer] 12/30/2031 [id number] / / [id number] Jouney Nonporous Tibial Baseplate Implanted:Qty: 1 on 03/05/2022 by Jose Porter MD at [facility] Left: Knee [employer] 07/09/2031 [id number] / / [id number] 12 Mm Jouney Ii Bcs Xlpe Articular Insert Implanted:Qty: 1 on 03/05/2022 by Jose Porter MD at [facility] Left: Knee [employer] 03/28/2028 [id number] / / [id number] Hannah Ii Resurfacing Patellar Component Implanted:Qty: 1 on 03/05/2022 by Jose Porter MD at [facility] Left: Knee [employer] [id number] / / [id number] Sys Ancr Sut 4.75mm Biocomposite - [id number] Implanted:Qty: 1 on 07/23/2023 by Fuad Rodriguez MD at [facility] Left: Shoulder [employer] 02/13/2027 [id number] L / / [id number] Ancr Sut 4.75x19.1mm Biocomp Swivelock C Vented Closed Wht-B - [id number] Implanted:Qty: 1 on 07/23/2023 by Fuad Rodriguez MD at [facility] Left: Shoulder [employer] 04/15/2027 [id number] T / / [id number] 1 Screw Hip 6.5x30mm Fermin Low Profile Hex - [id number] Implanted:Qty: 1 on 06/01/2024 by Jose Porter MD at [facility] Right: Hip [employer] 03/17/2029 [id number] / / [id number] Stem Fem 105mm Sz 5 Std Offset Insignia Collared - [id number] Implanted:Qty: 1 on 06/01/2024 by Jose Porter MD at [facility] Right: Hip [employer] 12/24/2028 [id number] / / [id number] Head Hip Od28mm -4 Biolox Delta C-Taper Alumina Cer - [id number] Implanted:Qty: 1 on 06/01/2024 by Jose Porter MD at [facility] Right: Hip [employer] 09/06/2028 [id number] / / [id number] Mdm X3 Insert For Mdm Liner 28mm Id 38mm Od Nicole 38d Implanted:Qty: 1 on 06/01/2024 by Jose Porter MD at [facility] Right: Hip [employer] 12/07/2028 [id number] / / [id number] Shell Hip 50d Trident Ii Clusterhole Tritanium - [id number] Implanted:Qty: 1 on 06/01/2024 by Jose Porter MD at [facility] Right: Hip [employer] 03/22/2029 [id number] / / [id number] Liner Hip Id38mm Sz B Mdmx3 Cocr - [id number] Implanted:Qty: 1 on 06/01/2024 by Jose Porter MD at [facility] Right: Hip [employer] 08/01/2027 [id number] / / [id number] Procedures Procedure Name Priority Date/Time Associated Diagnosis Comments XR HIP 1 VIEW W PELVIS RIGHT Routine 06/17/2024 8:59 AM CASH MANAGEMENT SPECIALIST S/p right total hip arthroplasty, DOS: 06/01/[address] Porter XR MAMMO ESTEFANIA BILAT SCREEN Routine 10/20/2023 11:43 AM CDT Visit for screening mammogram LIPID PANEL W REFLEX MEASURED LDL Routine 10/07/2023 10:23 AM CDT Screening cholesterol level ANTI HCV Routine 04/19/2022 12:15 PM CDT Need for hepatitis C screening test WASH DRILLER HELPER THIN PREP PAP SCREEN IMAGED Routine 06/29/2019 8:00 AM CASH MANAGEMENT SPECIALIST SCAN-COLONOSCOPY 06/03/2016 12:0 0 AM CASH MANAGEMENT SPECIALIST from Last 3 Months or Most Recently Relevant to Health Maintenance Results * XR HIP 1 VIEW W PELVIS RIGHT (06/17/2024 8:59 AM CASH MANAGEMENT SPECIALIST) Anatomical Region Laterality Modality HIPS, HIPR, Pelvis Digital Radio graphy Impressions 06/17/2024 9:19 AM CASH MANAGEMENT SPECIALIST Stable right total hip arthroplasty without complication Moderate osteoarthritis of the left hip Ankita Winters PA-C 06/17/2024 Narrative 06/17/2024 9:19 AM CASH MANAGEMENT SPECIALIST This radiology exam was performed at [facility] and interpreted by Ankita Winters PA-C HISTORY: [...] with no obvious evidence of loosening. Good gnosticist of leg length, hip center and offset. [...] care provider. XR MAMMO ESTEFANIA BILAT SCREEN [[id number]] CLINICAL HISTORY: This is an asymptomatic 53 y.o. patient. INDICATION FOR EXAM: Mammogram Screening. TECHNIQUE: CC & MLO views were obtained. This study was evaluated with the assistance of Computer-Aided Detection. Breast Tomosynthesis was used in interpretation. COMPARISON FILM: Yes 10/14/22 [facility] 09/14/21 [facility] FINDINGS: The breasts are heterogeneously dense, which may obscure small masses. There are no dominant masses, suspicious micro calcifications or areas of architectural distortion. Destiney BLACKMON MAMMO Final R esult * (ABNORMAL) LIPID PANEL W REFLEX MEASURED LDL (10/07/2023 10:23 AM CDT) CHOLESTEROL,TOTAL 212(H) 100 - 199 mg/dL 10/07/2023 7:57 PM CDT [facility] Comment: Cholesterol, Total Reference Ranges Desirable <200 mg/dL Borderline 200-239 mg/dL High >=240 mg/dL TRIGLYCERIDES 148 <150 mg/dL 10/07/2023 7:57 PM CDT [facility] HDL CHOLESTEROL 60 >40 mg/dL 7:57 PM CDT [facility] NON-HDL CHOLESTEROL 152(H) <145 mg/dl 10/07/2023 7:57 PM CDT [facility] CHOL/HDL RATIO 3.53 <4.50 10/07/2023 7:57 PM CDT [facility] LDL CHOLESTEROL 122 <=130 mg/dL 10/07/2023 7:57 PM CDT [facility] VLDL CHOLESTEROL 30 <=30 mg/dL 10/07/2023 7:57 PM CDT [facility] PROVIDER ORDERED STATUS RANDOM 10/07/2023 7:57 PM CDT [facility] Blood BLOOD SPECIMEN / Unknown Venipuncture / Unknown 10/07/2023 10:23 AM CDT 10/07/2023 10:23 AM CDT Destiney BLACKMON CHEMISTRY Final R esult [facility] [address] [place] [address], [place] * ANTI HCV (04/19/2022 12:15 PM CDT) HEPATITIS C ANTIBODY Non-React sheron Non-React sheron 04/20/2022 5:09 AM CDT [facility] Comment:Antibodies to HCV no t detected; does not exclude the possibility of exposure to HCV. Blood BLOOD SPECIMEN / Unknown Venipuncture / Unknown 04/19/2022 12:15 PM CDT 04/19/2022 12:18 PM CDT us Destiney BLACKMON SEND OUTS Final R esult [facility] [address] [place] [address], [place] * WASH DRILLER HELPER THIN PREP PAP SCREEN IMAGED (06/29/2019 8:00 AM CASH MANAGEMENT SPECIALIST) Case Report Gynecologic Cytology Report Case: [id number] Authorizing Provider: Dariana Jean MD Collected: 06/29/2019 0800 Ordering Location: [facility] Received: 06/30/2019 0903 First Screen: Katharine Lyon Specimen: WASH DRILLER HELPER ThinPrep Vial Screening, Cervical/Vaginal 07/08/2019 2:56 PM CASH MANAGEMENT SPECIALIST [facility] Narvar [facility] INTERPRETATION/ RESULT NEGATIVE FOR INTRAEPITHELIAL LESION OR MALIGNANCY (NIL) (none) 07/08/2019 2:56 PM CASH MANAGEMENT SPECIALIST [facility] Narvar [facility] at 1456 CASH MANAGEMENT SPECIALIST SPECIMEN ADEQUACY Satisfactory for evaluation Endocervical component present 07/08/2019 2:56 PM CASH MANAGEMENT SPECIALIST [facility] HPV REQUEST HPV and PAP 07/08/2019 2:56 PM CASH MANAGEMENT SPECIALIST [facility] Narvar [facility] Date of LMP 06/16/2019 07/08/2019 2:56 PM CASH MANAGEMENT SPECIALIST [facility] Additional Information 07/08/2019 2:56 PM CASH MANAGEMENT SPECIALIST [facility] Narvar [facility] Comment: Interpreted at [facility] [facility] - [address], [place] [address] Automated Review Successful 07/08/2019 2:56 PM CASH MANAGEMENT SPECIALIST [facility] Comment:Specimen processed s uccessfully by automated system analyst device, ThinPrep Imaging System, [employer] ANCILLARY TESTING WASH DRILLER HELPER HPV Ordered, Please see separate report 07/08/2019 2:56 PM CASH MANAGEMENT SPECIALIST [facility] Note The pap test is [...] pre-malignant and malignant lesions. 07/08/2019 2:56 PM CASH MANAGEMENT SPECIALIST [facility] Other (Cervical/Vagina l) 06/29/2019 8:00 AM CASH MANAGEMENT SPECIALIST 06/30/2019 9:03 AM CASH MANAGEMENT SPECIALIST Dariana Jean MD PATHOLOGY/CYTOLOGY Final Result [facility] [address] [place] [address], [place] * SCAN-COLONOSCOPY (06/03/2016 12:00 AM CASH MANAGEMENT SPECIALIST) us Scanner OTHER Final Result from Last 3 Months or Most Recently Relevant to Health Maintenance Insurance [facility] ADV[facility]AGE Advance Directives * Full Code (Latest [...] Code Status Discussion: Not Discussed Care Teams Water Filtration Technician Relationship Specialty Start Date End Date Destiney Childress PA [address] [place] [address] PCP - General Physician Nurse Anesthesia Program Director 07/03/23
[2024-09-14] MEDS: 0.9 % SODIUM CHLORIDE 500 ML 500 ML 1000 ML IV (21:30)
[2024-09-14] MEDS: BENZONATATE 100 MG CAPSULE 200 MG PO (22:33)
== END 2024-09-14 22:35 | disposition home or self-care (01) ==
PROVIDERS: Emergency Provider Family Medicine; PCP Family Medicine
DX: J40 Bronchitis, not specified as acute or chronic (principal)
CPT/HCPCS: 71275; 99284; A9270; J7030; Q9967

== ENCOUNTER 2025-06-11 12:51 | Emergency (ER) | payer BC, SELFPAY ==
--- OUTSIDE RECORDS SUMMARY | 2025-06-11 12:53 | XMS_ITS | Clinical Summary ---
Author Organization [facility] Address [address] [place] [address] Care Team Providers Care Child Monitor Name Role Phone Destiney Childress Primary Care Provider Allergies No known active allergies Medications MedicationSigDispense QuantityRefillsLast FilledStart DateEnd DateStatus cholecalciferol (VITAMIN D3) 1,000 unit capsule Take 1 Capsule (1,000 units) by mouth once daily.2Active acetaminophen (TYLENOL EXTRA STRGTH) 500 mg tablet Indications:Primary osteoarthritis of right hipTake 2 Tablets (1,000 mg) by mouth every 6 hours. Max acetaminophen dose: 4000mg in 24 hrs. 120 Tablet 06/03/2024 8:56 AM CST06/01/2024ctive ibuprofen (ADVIL; MOTRIN) 600 mg tablet Indications:Primary osteoarthritis of right hipTake 1 Tablet (600 mg) by mouth every 6 hours. Maximum of 3200 mg in 24 hours. Take with food 60 Tablet 06/03/2024 8:56 AM CST06/01/2024ctive amoxicillin 500 mg capsule Indications:PROPHYLAXISTake 4 capsules 1 hour prior to dental procedure or colonoscopy 4 Capsule 5Active benzonatate 200 mg capsule Indications:Cough, unspecified typeTake 1 Capsule (200 mg) by mouth 3 times daily if needed for Cough. 21 Capsule 5Active Nebulizer Indications:WheezingNebulizer, disposable neb kit x 4, reuseable neb kit x 1, mask x 1, filters x 1. Frequency of use: daily; Medication: duoneb Length of need: 99 months 1 Each 5Active pregabalin (LYRICA) 150 mg capsule Indications:FibromyalgiaTake 1 Capsule (150 mg) by mouth two times daily. 180 Capsule 3:06 PM CST5Active durable medical equipment (DME) Indications:Tendonitis, Achilles, left,Calcific Achilles tendinitis of left lower extremity,Gastrocnemius equinus, bilateralPLANTAR FASCIITIS NIGHT SPLINT, LARGE, REF: [phone] 1 Each 5Active COVID-19 antigen test (COVID-19 At-Home Test) kit For home use. 4 Kit 5Active simvastatin (ZOCOR) 10 mg tablet Indications:Hyperlipidemia, unspecified hyperlipidemia typeTake 1 Tablet (10 mg) by mouth at bedtime. 90 Tablet 2:26 PM CST5Active omeprazole (PRILOSEC) 20 mg Delayed-Release capsule Indications:Gastroesophageal reflux disease, unspecified whether esophagitis presentTake 1 Capsule (20 mg) by mouth once daily before a meal. 90 Capsule 2:26 PM CST5Active celecoxib (CELEBREX) 200 mg capsule Indications:History of total hip arthroplasty, right,Psoas tendonitis of right sideTake 1 Capsule (200 mg) by mouth two times daily with meals. Do NOT take Ibuprofen (Advil) or Naproxen (Aleve) while taking this medication. 60 Capsule 9:28 AM CDT5Active fluticasone (50 mcg per actuation) nasal solution (FLONASE) Indications:Rhinitis, unspecified typeInstill 2 Sprays to both nostrils once daily. 48 g 5:11 PM CST5Active inhalational spacing device Indications:Moderate persistent asthma without complication (HC)For home use. 1 Each 5Active budesonide-formoteroL (SYMBICORT,BREYNA) 160-4.5 mcg/actuation (160-4.5 mcg each actuation) inhaler Indications:Moderate persistent asthma without complication (HC)Inhale 2 Puffs by mouth two times daily. Rinse mouth after each use. 30.6 g 4:45 PM CST5Active albuterol HFA (PRO-AIR; VENTOLIN; PROVENTIL) 90 mcg/actuation inhaler Indications:Moderate persistent asthma without complication (HC)Inhale 2 Puffs by mouth every 4 hours if needed for Shortness Of Breath or Shortness of Breath 1st choice. 18 g 4:45 PM CST5Active levalbuterol (XOPENEX) 0.63 mg/3 mL nebulization Indications:Moderate persistent asthma without complication (HC)Inhale 3 mL (0.63 mg) via a nebulizer every 4 hours if needed for Shortness Of Breath or Wheezing. 90 mL 4:45 PM CST5Active escitalopram oxalate (LEXAPRO) 20 mg tablet Indications:DysthymiaTake 1 Tablet (20 mg) by mouth once daily. 90 Tablet 05/30/2025 3:06 PM CST5Active lisinopriL (PRINIVIL; ZESTRIL) 10 mg tablet Indications:HTN (hypertension)Take 1 Tablet (10 mg) by mouth once daily. 90 Tablet 2:26 PM CST5Active triamcinolone (55 mcg each actuation) nasal (NASACORT AQ) 55 mcg nasal spray Inhale 2 Sprays in both nostrils 1-2 times daily. 16.9 mL 2:26 PM CST5Active escitalopram oxalate (LEXAPRO) 20 mg tablet Indications:DysthymiaTake 1 Tablet (20 mg) by mouth once daily. 90 Tablet 9:34 AM CDTDiscontinued(Reorder (E-cancel not sent)) lisinopriL (PRINIVIL; ZESTRIL) 10 mg tablet Indications:HTN (hypertension)Take 1 Tablet (10 mg) by mouth once daily. 90 Tablet 03/10/2025 1:10 PM CDTDiscontinued(Reorder (E-cancel not sent)) predniSONE (DELTASONE) 20 mg tablet Indications:Exacerbation of asthma, unspecified asthma severity, unspecified whether persistent (HC)Take 2 Tablets (40 mg) by mouth once daily for 5 days, THEN 1 Tablet (20 mg) once daily for 5 days. 15 Tablet 05/23/2025 9:36 AM CST/Expired levoFLOXacin 750 mg tablet Indications:lower respiratory infectionTake 1 Tablet (750 mg) by mouth once daily before evening meal for 5 days. Take at least 2 hours before or 6 hours after antacids, highly buffered drugs, or products containing magnesium, aluminum, calcium, iron or zinc. 5 Tablet 05/23/2025 9:36 AM CST/Expired Active Problems ProblemNoted DateDiagnosed DateS/p left total knee arthroplasty DOS 03/05/[address] Porter.03/01/2025S/p right total hip arthroplasty, DOS: 06/01/[address] Porter06/14/2024rimary osteoarthritis of right hip06/01/2024HTN (hypertension)06/01/2024S/P arthroscopy of left hlvgmulu72/28/2024Nontraumatic complete tear of left rotator cuff07/24/2023Subacromial impingement of left alayppey69/02/2024Subacromial bursitis of left shoulder joint06/17/2023rthritis of left acromioclavicular joint06/17/2023Tendinitis of long head of biceps 06/17/2023Hyperlipemia, mixed03/05/2022epressive state03/05/2022Fibromyalgia 03/05/2022L5-S1 left sided disc uujnhgysyj61/02/2014 Resolved Problems ProblemNoted DateDiagnosed DateResolved DateStatus post total left knee czhhbwbmjso11/15/202202/5481Zkbjjmmxjhr23/20/202202/S/P left knee vpwmrcy85ysthymiaImmunodeficiency L4-5 right sided disc udswbk12 Overview (06/17/2013): Primary osteoarthritis of left knee07/31/2022 Encounters DateTypeDepartmentCare IqnxLkjjrsmpkzs45/22/2025 1:00 PM CSTProcedure Only [facility] [place] [address] [facility] [address] [place] [phone] 06/06/2025 8:00 AM CSTOffice Visit [facility] [address] [place] [address] Bobby Hernández MD Musculoskeletal Problem (Left achilles tendonitis)06/06/20250341Zxjdjj03/17/2025 Refill [facility] [address] [place] [address] Destiney Childress PA Refill Request (Lisinopril)05/24/2025Refill [facility] [address] [place] [address] Destiney Childress PA Refill Request (Lexapro)05/20/2025Telephone [facility] Orthopedics [facility] [address] [place] [address] Aashish Eastman MD Tgnrlolxb43/21/2025[facility] Only [facility] [address] [place] [address] Giulia Sierra MD <No scans attached>05/05/2025 12:30 PM CSTOffice Visit [address] [place] [address] Giulia Sierra MD Consult (Abnormal lung CT per NEYMAR Mccauley)05/05/20257536Vjneqp03/10/2025 4:25 PM CSTOffice Visit [facility] [address] [place] [phone] Carlos Encarnacion PA Medication Reaction (Started Advair in September and Symbicort 4 days ago. Patient noticing she's losing her voice and feels like her airway is inflamed. ) 04/25/20258899Orfgcv00/08/2025Refill [facility] [address] [facility] [address] Destiney Childress PA Refill Request (Flonase)04/22/2025 10:06 AM PHARMACY TECH CUSTOMER SERVICE - 04/22/2025 11:59 PM PHARMACY TECH CUSTOMER SERVICE Hospital Encounter [address] [place] [address] Ankita Winters PA Nightingale, Alexandra, PT 04/22/20253052Qcihsk39/06/2025Telephone [facility] Orthopedics [facility] [address] [place] [phone] Aashish Eastman MD Appointment Request (TENEX )04/15/2025 10:09 AM CDT - 04/15/2025 11:59 PM CDT Hospital Encounter [address] [place] [address] Ankita Winters PA Nightingale, Alexandra, PT 04/15/20253625Caoqqx35/21/2025 11:00 AM CDTOffice Visit [facility] [address] [facility] [place] [phone] Aashish Rios DPM Follow Up (Left achilles/ankle, review MRI results)04/05/20258514Nxamro25/15/2025 2:43 PM CDT - 03/30/2025 11:59 PM CDTHospital Encounter [facility] [address] [place] [address] Aashish Rios DPMarocs Calcific Achilles tendinitis of left lower cvbxsohvv64/14/2025 3:04 PM CDT - 03/29/2025 11:59 PM CDTHospital Encounter [address] [place] [facility] [place] [address] Ankita Winters PA Wegner, Angela V, METEOROLOGY TEACHER 03/29/20256359Opqjnk86/08/2025 12:03 PM CDT - 03/23/2025 11:59 PM CDTHospital Encounter [facility] [address] [address] Ankita Winters PA Nightingale Tianna, PT 03/23/2025Travelfrom Last 3 Months Immunizations ImmunizationAdministration DatesNext DueCOVID-19 VACCINE SPIKEVAX (MODERNA 50MCG/0.5ML) 12YO+ PFS04/19/2024,3COVID-19 vaccine (Pfizer-BioNTech 30mcg/0.3mL) 12YO+ BIVALENT PF, MDV12COVID-19 vaccine (Pfizer-BioNTech 30mcg/0.3mL) 12YO+ DEANNE-SUCROSE PF, MDV2COVID-19 vaccine (Pfizer- BioNTech 30mcg/0.3mL) PF, MDV03/13/2021,07/27/2020,07/06/2020INFLUENZA, IIV3 PF (AGE >= 6 MO)04/19/2024Influenza A (H1N1), Inactivated (Age >=3 Years)04/20/2009 Influenza, IIV3 (Age 6-35 mos)05/18/2014,03/24/2013,05/03/2011,03/21/2009 Influenza, IIV3 (Age >=3 years)03/21/2012,04/30/2006,05/09/2003Influenza, IIV4 04/02/2023,04/19/2022,03/13/2021,03/30/2019,03/16/2019,04/25/2017 Influenza,CCIIV4 PRESERV FREE05/16/2020Td (Age >=7 Years)10/02/2004Tdap 11/30/2015Tetanus/Jtiwnbjgx04/19/2005Zoster (Shingrix-RZV, recombinant) 05/16/2020,02/24/2020,02/11/2020 Family History Medical HistoryRelationNameCommentsAlcoholismBrother 1AllergiesBrother 2Cancer Fathernon-hodgekins lymphoma of lungsHypertensionFatherCancerMaternal Auntfound post mordem, unsure where cancer wasCancer-breastMaternal AuntBrain Aneurysm Maternal GrandmotherStrokeMaternal GrandmotherBrain AneurysmMaternal UncleCancer Motherunsure of primary source, mom passed suddenly from cancerBrain Aneurysm Othermaternal cousinGood HealthSon 1Good HealthSon 2Cancer-ovarianNo Family HistoryRelationNameStatusCommentsBrother 1Brother 2AliveFatherMaternal Aunt Maternal GrandmotherDeceased (Age 60)Maternal UncleAliveMotherDeceasedOtherSon 1 Son 2 Social History Tobacco UseTypesPacks/DayYears UsedDateSmoking Tobacco: NeverPassive Smoke Exposure: PastSmokeless Tobacco: Never Tobacco Cessation:Counseling Given: Yes Alcohol UseStandard Drinks/WeekCommentsNot Currently0 (1 standard drink = 0.6 oz pure alcohol)socialPHQ-2AnswerDate RecordedPHQ-2 TOTAL [id number] ConnectionsAnswerDate RecordedDo you often feel lonely or isolated from those around you?Financial Resource StrainAnswerDate RecordedDifficulty of Paying Living Lluhtrvu230/16/2025Difficulty of Paying Living ExpensesNot on file 12/29/2024Food InsecurityAnswerDate RecordedDo you worry your food will run out before you are able to buy more?Transportation NeedsAnswerDate RecordedDoes lack of transportation keep you from medical appointments?12/29/2024Does lack of transportation keep you from work, meetings or getting things that you need?Housing StabilityAnswerDate RecordedWhat is your housing situation today?UtilitiesAnswerDate RecordedDo you have trouble paying for utilities (for example, heat, electricity, water, phone)?12/29/2024CommentsNoSex and Gender InformationValueDate RecordedSex Assigned at BirthNot on fileLegal PiqOikllp99/14/2013 5:42 AM CSTGender Identity Not on fileSexual OrientationNot on file Last Filed Vital Signs Vital SignReadingTime TakenCommentsBlood Gmcurvzc169/7906/06/2025 8:00 AM PHARMACY TECH CUSTOMER SERVICE Rdckq321106/06/2025 8:00 AM WXUSlqwdsxvova76.4 ??C (97.6 ??F)04/25/2025 4:30 PM CSTRespiratory Ujok915506/25/2024 4:30 PM CSTOxygen Lvldmhwhks29%06/06/2025 8:00 AM CSTInhaled Oxygen Concentration--Rooaqu845.6 kg (277 lb)06/06/2025 8:00 AM MQKYksvnf326.6 cm (5' 6)05/05/2025 12:41 PM CSTBody Mass Index44.7105/05/2025 12:41 PM PHARMACY TECH CUSTOMER SERVICE Plan of Treatment DateTypeDepartmentCare Team (Latest Contact Info)Jaswttiidhq56/12/2026 7:30 AM CSTOffice Visit [facility] [address] [place] [address] Destiney Childress PA [address] [place] [address] 06/30/2025 9:00 AM CSTProcedure Only [facility] [address] [place] [address] Bobby Hernández MD [address] [place] [address] 08/15/2025 10:30 AM CSTTelemedicine [address]NALLELY PRE[facility] [place] [address] Giulia Sierra MD [address] [place] [address] 09/06/2025 10:00 AM CDTAppointment [facility] [address] [place] [address] Sophy Berry, [facility] [address] [place] [address] Health MaintenanceDue DateLast DoneCommentsHIV for age 15-Hepatitis B series for 19+ (1 of 3 - 19+ 3-dose series)02/06/1987Pneumococcal series for age 50+ (1 of 2 - PCV)02/06/1987RSV vaccine for adults or (1 - Risk 50-74 years 1-dose series)02/06/2018Pap test for age 21-, 06/29/2019, 06/06/2017, Additional history existsCOVID-19 vaccine series (2024- season), 04/02/2023, 04/19/2022, Additional history existsInfluenza Vaccine (#1)/09/2023, 04/02/2023, 04/19/2022, Additional history existsMammogram for age 40-6010/27/2024, 10/20/2023, 10/14/2022, Additional history existsTetanus rahrnkf5711/29/2025 11/30/2015, 10/02/2004BMI (ht and wt on same day) for age 18+05/05/2026 05/05/2025, 10/07/2023, 07/08/2023, Additional history existsDepression screening for age 12+, 05/24/2025, 2Colonoscopy through age 75, 06/03/2016Lipids for age 45-75010/06/2028 10/07/2023, 07/31/2022, 09/07/2021, Additional history existsZoster (shingles) series for age 50+Hahsopezl87/01/2020, 02/24/2020, 02/11/2020Hepatitis C screening for age 18-76Thedxhyxg15/04/2022 Medical Devices ImplantedTypeAreaManufacturerDevice IdentifierShelf Expiration DateModel / Serial / LotCmnt Bone 40gm Rally Mv Ab - [id number] Implanted:Qty: 2 on 03/05/20[facility] And Nephew Ggkuyhgrccb84/31/[id number] / / [id number] Cruciate Stabilized Jouney Ii Femoral Component Implanted:Qty: 1 on 03/05/2022 [facility] And Nephew Uzjqeqcvoxl32/16/[id number] / / [id number] Nonporous Tibial Baseplate Implanted:Qty: 1 on 03/05/2022 [facility] And Nephew Fccpwindjol35/24/[id number] / / [id number] Mm Jouney Ii Bcs Xlpe Articular Insert Implanted:Qty: 1 on 03/05/2022 [facility] And Neph Hwkvlttibsl72/13/[id number] / / [id number] Ii Resurfacing Patellar Component Implanted:Qty: 1 on 03/05/2022 [facility] And Nephew [id number] / / [id number] Ancr Sut 4.75mm Biocomposite - [id number] Implanted:Qty: 1 on 07/23/2023 by [facility]: ShoulderArthrex Inc7AR-1665KBCSL / / [id number] Sut 4.75x19.1mm Biocomp Swivelock C Vented Closed Wht-B - [id number] Implanted:Qty: 1 on 07/23/2023 by [facility]: ShoulderArthrex Inc04/15/2027R-2324BCCTT / / [id number] Hip 6.5x30mm Ferm[place] Low Profile Hex - [id number] Implanted:Qty: 1 on 06/01/2024 by Jose Porter MD at [facility] Right: [facility] Hqwkmhfhcjph21/02/[id number] / / [id number] Fem 105mm Sz 5 Std Offset Insignia Collared - [id number] Implanted:Qty: 1 on 06/01/2024 by Jose Porter MD at [facility] Right: [facility]07//[id number] / / [id number] Hip Od28mm -4 Biolox Delta C-Taper Alumina Cer - [id number] Implanted:Qty: 1 on 06/01/2024 by Jose Porter MD at [facility] Right: [facility]09/06/[id number] / / [id number] X3 Insert For Mdm Liner 28mm Id 38mm Od Nicole 38d Implanted:Qty: 1 on 06/01/2024 by Jose Porter MD at [facility] Right: [facility]12/07/[id number] / / [id number] Hip 50d Trident Ii Clusterhole Tritanium - [id number] Implanted:Qty: 1 on 06/01/2024 by Jose Porter MD at [facility] Right: [place] [id number] / / [id number] Hip Id38mm Sz B Mdmx3 Cocr - [id number] Implanted:Qty: 1 on 06/01/2024 by Jose Porter MD at [facility] Right: [facility]08/01/[id number] / / [id number] Procedures Procedure NamePriorityDate/TimeAssociated DiagnosisCommentsCOMPLETE PFT SPIROMETRY LUNG VOL HNBZRRTLBEniueyv46/22/2025 12:23 PM PHARMACY TECH CUSTOMER SERVICE Moderate persistent asthma without complication (HC) CBC WITH AUTO PPDJMTMGVECFOumkbmn71/20/2025 2:14 PM PHARMACY TECH CUSTOMER SERVICE Moderate persistent asthma without complication (HC) RESPIRATORY DISEASE ALLERGY RPACIDRTbgtgxf84/ 2:14 PM PHARMACY TECH CUSTOMER SERVICE Moderate persistent asthma without complication (HC) CBC WITH AUTO ZFVEVFWTNBPYCzxharh58/20/2025 2:14 PM PHARMACY TECH CUSTOMER SERVICE Moderate persistent asthma without complication (HC) NITRIC JCSQHHgvctsv47/20/2025 12:00 AM PHARMACY TECH CUSTOMER SERVICE Moderate persistent asthma without complication (HC) MR ANKLE LEFT NLXyqralj17/15/2025 3:26 PM CDT Calcific Achilles tendinitis of left lower extremity XR MAMMO ESTEFANIA BILAT RPXAWLYklkzai41/14/2025 7:17 AM CDT Visit for screening mammogram LIPID PANEL W REFLEX MEASURED LDIEzlpulj41/23/2024 10:23 AM CDT Screening cholesterol level ANTI TTZSyqtzfw90/04/2022 12:15 PM CDT Need for hepatitis C screening test KIDNEY TRIMMER THIN PREP PAP SCREEN ZRLSYSAvyqfxy51/14/2020 8:00 AM PHARMACY TECH CUSTOMER SERVICE SCAN-YEVFRBNDMCW93/19/2016 12:00 AM PHARMACY TECH CUSTOMER SERVICE from Last 3 Months or Most Recently Relevant to Health Maintenance Results * (ABNORMAL) RESPIRATORY DISEASE ALLERGY PROFILE (05/05/2025 2:14 PM PHARMACY TECH CUSTOMER SERVICE) ComponentValueRef RangeTest MethodAnalysis TimePerformed AtPathologist SignatureALTERNARIA ALTERNATA (M6) IGE<0.10kU/L107/09/2024 9:38 PM CSTQUEST DIAGNOSTICSALTERNARIA ALTERNATA (M6) IGE IOYTQ045 9:38 PM CSTQUEST DIAGNOSTICSASPERGILLUS FUMIGATUS (M3) IGE<0.10kU/L107/09/2024 9:38 PM CSTQUEST DIAGNOSTICSASPERGILLUS FUMIGATUS (M3) IGE MJGLT461 9:38 PM CSTQUEST DIAGNOSTICSBIRCH (T3) IGE<0.10kU/L107/09/2024 9:38 PM CSTQUEST DIAGNOSTICSBIRCH (T3) IGE ACIMN176 9:38 PM CSTQUEST DIAGNOSTICSCAT DANDER (E1) IGE<0.10 kU/L107/09/2024 9:38 PM CSTQUEST DIAGNOSTICSCAT DANDER (E1) IGE CLASS0 05/09/2025 9:38 PM CSTQUEST DIAGNOSTICSCLADOSPORIUM HERBARUM (M2) IGE<0.10kU/L 05/09/2025 9:38 PM CSTQUEST DIAGNOSTICSCLADOSPORIUM HERBARUM (M2) IGE CLASS0 05/09/2025 9:38 PM CSTQUEST DIAGNOSTICSCOCKROACH (I6) IGE<0.10kU/L107/09/2024 9:38 PM CSTQUEST DIAGNOSTICSCOCKROACH (I6) IGE HJSSJ07907/09/2024 9:38 PM PHARMACY TECH CUSTOMER SERVICE [facility] DIAGNOSTICSCOMMON RAGWEED (SHORT) (W1) IGE<0.10kU/L107/09/2024 9:38 PM CSTQUEST DIAGNOSTICSCOMMON RAGWEED (SHORT) (W1) IGE TPICL728 9:38 PM CSTQUEST DIAGNOSTICSDERMATOPHAGOIDES FARINAE (D2) IGE0.26(H)kU/L107/09/2024 9:38 PM CSTQUEST DIAGNOSTICSDERMATOPHAGOIDES FARINAE (D2) IGE CLASS0/1 05/09/2025 9:38 PM CSTQUEST DIAGNOSTICSDERMATOPHAGOIDES PTERONYSSINUS (D1) IGE 0.26(H)kU/L107/09/2024 9:38 PM CSTQUEST DIAGNOSTICSDERMATOPHAGOIDES PTERONYSSINUS (D1) IGE CLASS0/ 9:38 PM CSTQUEST DIAGNOSTICSDOG DANDER (E5) IGE<0.10kU/L107/09/2024 9:38 PM CSTQUEST DIAGNOSTICSDOG DANDER (E5) IGE SGFQA159 9:38 PM CSTQUEST DIAGNOSTICSELM (T8) IGE<0.10kU/L 05/09/2025 9:38 PM CSTQUEST DIAGNOSTICSELM (T8) IGE REKEM272 9:38 PM CSTQUEST DIAGNOSTICSIMMUNOGLOBULIN E39<VQ=465 kU/L107/09/2024 9:38 PM CSTQUEST DIAGNOSTICSMAPLE (BOX ELDER) (T1) IGE<0.10kU/L107/09/2024 9:38 PM CSTQUEST DIAGNOSTICSMAPLE (BOX ELDER) (T1) IGE IMNGK25407/09/2024 9:38 PM CSTQUEST DIAGNOSTICSROUGH MICHAEL PRESTON (W16) IGE<0.10kU/L107/09/2024 9:38 PM CSTQUEST DIAGNOSTICSROUGH MICHAEL PRESTON (W16) IGE GGTZJ28607/09/2024 9:38 PM CSTQUEST DIAGNOSTICSOAK (T7) IGE<0.10kU/L107/09/2024 9:38 PM CSTQUEST DIAGNOSTICSOAK (T7) IGE HXLSC75407/09/2024 9:38 PM CSTQUEST DIAGNOSTICSPENICILLIUM NOTATUM (M1) IGE<0.10kU/L107/09/2024 9:38 PM CSTQUEST DIAGNOSTICSPENICILLIUM NOTATUM (M1) IGE SPUCK66107/09/2024 9:38 PM CSTQUEST DIAGNOSTICSMOUNTAIN CEDAR (T6) IGE<0.10 kU/L107/09/2024 9:38 PM CSTQUEST DIAGNOSTICSMOUNTAIN CEDAR (T6) IGE CLASS0 05/09/2025 9:38 PM CSTQUEST DIAGNOSTICSCOTTONWOOD (T14) IGE<0.10kU/L107/09/2024 9:38 PM CSTQUEST DIAGNOSTICSCOTTONWOOD (T14) IGE JLCMQ117 9:38 PM PHARMACY TECH CUSTOMER SERVICE [facility] DIAGNOSTICSWHITE RICK (T15) IGE<0.10kU/L107/09/2024 9:38 PM CSTQUEST DIAGNOSTICSWHITE RICK (T15) IGE JAJTU611 9:38 PM CSTQUEST DIAGNOSTICS WHITE MULBERRY (T70) IGE<0.10kU/L107/09/2024 9:38 PM CSTQUEST DIAGNOSTICSWHITE MULBERRY (T70) TSJUGJLP783/24/2025 9:38 PM CSTQUEST DIAGNOSTICSBERMUDA GRASS (G2) IGE<0.10kU/L107/09/2024 9:38 PM CSTQUEST DIAGNOSTICSBERMUDA GRASS (G2) IGE XNRSC630 9:38 PM CSTQUEST DIAGNOSTICSTIMOTHY GRASS (G6) IGE<0.10kU/L 05/09/2025 9:38 PM CSTQUEST DIAGNOSTICSTIMOTHY GRASS (G6) IGE EVDKO892 9:38 PM CSTQUEST DIAGNOSTICSRUSSIAN THISTLE (W11) IGE<0.10kU/L107/09/2024 9:38 PM CSTQUEST DIAGNOSTICSRUSSIAN THISTLE (W11) IGE XTSSH389 9:38 PM PHARMACY TECH CUSTOMER SERVICE [facility]ST DIAGNOSTICSNETTLE (W20) IGE<0.10kU/L107/09/2024 9:38 PM CSTQUEST DIAGNOSTICSNETTLE (W20) IGE PRIXR470 9:38 PM CSTQUEST DIAGNOSTICSMOUSE URINE PROTEINS (E72) IGE<0.10kU/L107/09/2024 9:38 PM CSTQUEST DIAGNOSTICSMOUSE URINE PROTEINS (E72) IGE HHTPV036 9:38 PM CSTQUEST DIAGNOSTICS INTERPRETATIONSEE NOTE05/09/2025 9:38 PM CSTQUEST DIAGNOSTICSComment: Specific ?Level of Allergen IGE Class ?kU/L ? Specific IGE Antibody ----- ? --------- ? 0 <0.10 Absent/Undetectable ??0/1 ?0.10-0.34 ? Very Low Level ??1 ?0.35-0.69 ? Low Level ??2 ?0.70-3.49 ? Moderate Level ??3 ?3.50-17.4 ? High Level ??4 ?17.5-49.9 ? Very High Level ??5 ?50-100 ?Very High Level 6 >100 Very High Level The clinical relevance of allergen results of 0.10-0.34 kU/L are undetermined and intended for specialist use. Allergens denoted with a include results using one or more analyte specific reagents. In those cases, the test was developed and its analytical performance characteristics have been determined by [employer]. It has not been cleared or approved by the U.S. Food and Drug Administration. This assay has been validated pursuant to the CLIA regulations and is used for clinical purposes. Specimen (Source)Anatomical Location / LateralityCollection Method / Volume Collection TimeReceived TimeBloodBLOOD SPECIMEN / UnknownQuest Collect / Unknown 05/05/2025 2:14 PM CST05/05/2025 2:14 PM PHARMACY TECH CUSTOMER SERVICE Narrative Authorizing ProviderResult TypeResult StatusEsther Dorie Rubio [facility] OUTSFinal ResultPerforming OrganizationAddressCity/State/ZIP CodePhone Number [employer] [id number] [place] [address], * (ABNORMAL) CBC WITH AUTO DIFFERENTIAL (05/05/2025 2:14 PM PHARMACY TECH CUSTOMER SERVICE)ComponentValue Ref RangeTest MethodAnalysis TimePerformed AtPathologist SignatureWHITE BLOOD CELL COUNT8.33.8 - 10.8 Thousand/uL05/05/2025 2:34 PM [facility] BLOOD CELL COUNT4.613.80 - 5.10 Million/uL05/05/2025 2:34 PM [facility] [id number] - 15.5 g/dL05/05/2025 2:34 PM [facility] [id number] - 45.0 % 05/05/2025 2:34 PM [facility] [id number] - 100.0 fL 05/05/2025 2:34 PM [facility] [id number] - 33.0 pg 05/05/2025 2:34 PM [facility] MD, [facility] SQFJPBRBYT50.7(L)32.0 - 36.0 g/dL05/05/2025 2:34 PM [facility], [facility], [facility] CLINICComment: For adults, a slight decrease in the calculated MCHC value (in the range of 30 to 32 g/dL) is most likely not clinically significant; however, it should be interpreted with caution in correlation with other red cell parameters and the patient's clinical condition. RDW13.211.0 - 15.0 %05/05/2025 2:34 PM [facility] PL[facility]LET [id number] - 400 Thousand/uL05/05/2025 2:34 PM [facility] CLINICMPV9.87.5 - 12.5 fL05/05/2025 2:34 PM [facility] NAGHUXVFERHNFYSJJ63.7%05/05/2025 2:34 PM [facility] BGAUNUATWCU88.4%05/05/2025 2:34 PM [facility] CLINICMONOCYTES 7.6%05/05/2025 2:34 PM [facility] CLINICEOSINOPHILS3.7% 05/05/2025 2:34 PM [facility]OPHILS0.6%05/05/2025 2:34 PM [facility]IC[facility] [id number] - 7800 cells/uL05/05/2025 2:34 PM [facility] [id number] - 3900 cells/uL05/05/2025 2:34 PM [facility] TTAIYEGCC233803 - 950 cells/uL05/05/2025 2:34 PM [facility] DOGYOSIGCER36323 - 500 cells/uL05/05/2025 2:34 PM [facility] RLCMJCCMG702 - 200 cells/uL 05/05/2025 2:34 PM [facility] CLINICSpecimen (Source) Anatomical Location / LateralityCollection Method / VolumeCollection Time Received TimeBloodBLOOD SPECIMEN / UnknownQuest Collect / Dqyxvkg9405/05/2025 2:14 PM CST05/05/2025 2:14 PM PHARMACY TECH CUSTOMER SERVICE Narrative Authorizing ProviderResult TypeResult StatusEsther Dorie Jaramillo MD HEMATOLOGYFinal ResultPerforming OrganizationAddressCity/State/ZIP CodePhone Number [facility] [address] [place] [address], [place] [phone] [facility] [address] [place] [address], * NITRIC OXIDE (05/05/2025 12:00 AM PHARMACY TECH CUSTOMER SERVICE) Narrative Authorizing ProviderResult TypeResult StatusEsther Dorie Jaramillo MD RESPIRATORY CARE ORDFinal Result * MR ANKLE LEFT WO (03/30/2025 3:26 PM CDT)Anatomical RegionLateralityModality ANKLE LMagnetic ResonanceSpecimen (Source)Anatomical Location / Laterality Collection Method / VolumeCollection TimeReceived Time03/31/2025 8:57 AM CDT Impressions 03/31/2025 8:57 AM CDT 1. Achilles tendinosis with spurring at its posterior calcaneal attachment site. No Achilles tendon tear. Peritendinous edema is present. 2. Plantar calcaneal spur with chronic thickening of the proximal plantar fascia. 3. 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 4. Os trigonum with slightly widened synchondrosis. Dictated by Alexander High MD @ 03/31/2025 8:57:08 AM (Electronically Signed) Narrative 03/31/2025 8:57 AM CDT For Patients: As a result of the Cures Act, medical imaging exams and procedure reports are released immediately into your electronic medical record. You may view this report before your referring provider. If you have questions, please contact your health care provider. CLINICAL INDICATION: Calcific Achilles tendinitis. COMPARISON IMAGING STUDIES: Left foot radiographs from 01/11/2022. TECHNICAL: Non-contrast MR of the left ankle. Axial, sagittal and coronal T1, PD, PDFS and STIR images. ??1.5 Jessica MR scanner. ?? FINDINGS: OSSEOUS STRUCTURES: No acute fracture or avascular necrosis. Os trigonum. There is mild widening of a portion of the synchondrosis as seen on sagittal STIR image number 15 of series 8. JOINT SPACES: Ankle joint space is maintained. Small amount fluid within the posterior recess of the posterior subtalar joint space. Subtalar articulations are otherwise maintained. Minor talonavicular joint effusion. Joint space otherwise maintained. Calcaneocuboid articulation is maintained. Advanced degenerative changes of the 2nd TMT articulation with subchondral bone marrow edema related to full-thickness cartilage loss. LIGAMENTS: Syndesmotic Ligaments: The anterior and posterior syndesmotic ligaments are intact. Lateral Ligaments: The anterior talofibular, calcaneofibular and posterior talofibular ligaments are intact. Medial Ligaments: Intact. Spring Ligaments: Intact. Lisfranc ligament complex: Intact. TENDONS: Flexor Tendons: Small amount of posterior tibial tendon sheath fluid. No tear or significant tendinosis of the distal tendon. Flexor digitorum longus and flexor hallucis longus tendons are intact. Extensor Tendons: The anterior extensor tendons are intact. Achilles Tendon: There is spurring at the Achilles attachment to posterior calcaneus. Tendinosis ofthe distal tendon without significant tendon tear. There is some peritendinous edema. Peroneal Tendons: The peroneus longus and brevis tendons are intact. TARSAL TUNNEL: The soft tissues of the tarsal tunnel are normal without mass or fluid collection. ??No abnormalityalong the course of the medial or lateral plantar nerves. SINUS TARSI: The structures of the sinus tarsi appear normal. ??No disruption of the interosseous ligaments or significant effacement of fat. PLANTAR SOFT TISSUES: Plantar calcaneal spur. Chronic thickening of the proximal plantar fascia. No plantar fascial tear. OTHER FINDINGS: Areas of subcutaneous edema. Procedure Note Alexander High MD - 03/31/2025 For Patients: As a result of the 21st Century Cures Act, medical imagingexams and procedure reports are released immediately into your electronicmedical record. You may view this report before your referring provider.If you have questions, please contact your health care provider. CLINICAL INDICATION: Calcific Achilles tendinitis. COMPARISON IMAGING STUDIES: Left foot radiographs from 01/11/2022. TECHNICAL: Non-contrast MR of the left ankle. Axial, sagittal and coronal T1, PD,PDFS and STIR images. 1.5 Jessica MR scanner. FINDINGS: OSSEOUS STRUCTURES: No acute fracture or avascular necrosis. Os trigonum. There is mildwidening of a portion of the synchondrosis as seen on sagittal STIR imagenumber 15 of series 8. JOINT SPACES: Ankle joint space is maintained. Small amount fluid within the posteriorrecess of the posterior subtalar joint space. Subtalar articulations areotherwise maintained. Minor talonavicular joint effusion. Joint space otherwise maintained. Calcaneocuboid articulation is maintained. Advanced degenerative changes of the 2nd TMT articulation with subchondralbone marrow edema related to full-thickness cartilage loss. LIGAMENTS: Syndesmotic Ligaments: The anterior and posterior syndesmotic ligamentsare intact. Lateral Ligaments: The anterior talofibular, calcaneofibular and posterior talofibular ligaments are intact. Medial Ligaments: Intact. Spring Ligaments: Intact. Lisfranc ligament complex: Intact. TENDONS: Flexor Tendons: Small amount of posterior tibial tendon sheath fluid. Notear or significant tendinosis of the distal tendon. Flexor digitorumlongus and flexor hallucis longus tendons are intact. Extensor Tendons: The anterior extensor tendons are intact. Achilles Tendon: There is spurring at the Achilles attachment to posterior calcaneus. Tendinosis of the distal tendon without significant tendontear. There is some peritendinous edema. Peroneal Tendons: The peroneus longus and brevis tendons are intact. TARSAL TUNNEL: The soft tissues of the tarsal tunnel are normal without mass or fluid collection. No abnormality along the course of the medial or lateralplantar nerves. SINUS TARSI: The structures of the sinus tarsi appear normal. No disruption of the interosseous ligaments or significant effacement of fat. PLANTAR SOFT TISSUES: Plantar calcaneal spur. Chronic thickening of the proximal plantar fascia.No plantar fascial tear. OTHER FINDINGS: Areas of subcutaneous edema. IMPRESSION: 1. Achilles tendinosis with spurring at its posterior calcaneal attachmentsite. No Achilles tendon tear. Peritendinous edema is present. 2. Plantar calcaneal spur with chronic thickening of the proximal plantarfascia. 3. 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 4. Os trigonum with slightly widened synchondrosis. Dictated by Alexander High MD @ 03/31/2025 8:57:08 AM (Electronically Signed) Authorizing ProviderResult TypeResult StatusTrent R Blanca DPMMRFinal Result * XR MAMMO ESTEFANIA BILAT SCREEN (10/27/2024 7:17 AM CDT)Anatomical RegionLaterality ModalityBREASTS, Breast Left, Breast RightBilateralMammographySpecimen (Source)Anatomical Location / LateralityCollection Method / VolumeCollection TimeReceived Time Impressions 10/27/2024 3:25 PM CDT There is no radiographic evidence for malignancy. Recommend annual mammograms. MAMMOGRAM ASSESSMENT: ??ACR 1 Negative PATIENTS: You will also receive a letter with your examination results in an easy to read format. ??If you have questions about your results, please contact your referring provider. Narrative 10/27/2024 3:25 PM CDT For Patients: As a result of the Century Cures Act, medical imaging exams and procedure reports are released immediately into your electronic medical record. You may view this report before your referring provider. If you have questions, please contact your health care provider. XR MAMMO ESTEFANIA BILAT SCREEN [[id number]] CLINICAL HISTORY: ??This is an asymptomatic 54 y.o. patient. INDICATION FOR EXAM: Mammogram Screening. TECHNIQUE: CC and MLO views were obtained. ??This study was evaluated with the assistance of Computer-Aided Detection. Breast Tomosynthesis was used in interpretation. COMPARISON FILM: Yes 10/20/23 [facility] 10/14/22 [employer] FINDINGS: ??There are scattered areas of fibroglandular density. There are no dominant masses, suspicious micro calcifications or areas of architectural distortion. Authorizing ProviderResult TypeResult StatusBridget Sarita Childress PAMAMMOFinal Result * (ABNORMAL) LIPID PANEL W REFLEX MEASURED LDL (10/07/2023 10:23 AM CDT) ComponentValueRef RangeTest MethodAnalysis TimePerformed AtPathologist SignatureCHOLESTEROL,LRYNL788(H)100 - 199 mg/dL10/07/2023 7:57 PM [facility]ORATORYComment: Cholesterol, Total Reference Ranges Desirable <200 mg/dL Borderline 200-239 mg/dL High >=240 mg/dL YTPKZDSERNPYE848<150 mg/dL10/07/2023 7:57 PM [facility] LABORATORYHDL YZYUMWBBYEF15>40 mg/dL10/07/2023 7:57 PM [facility]AL LABORATORYNON-HDL XCEKWHLBZAG628(H)<145 mg/dl10/07/2023 7:57 PM [facility] LAB[facility]ATORYCHOL/HDL RATIO3.53<4.50 10/07/2023 7:57 PM [facility] LABORATORYLDL CHOLESTEROL 122<=130 mg/dL10/07/2023 7:57 PM [facility] VLDL UPNCLXUEAJU22<=30 mg/dL10/07/2023 7:57 PM [facility]- CENTRAL LABORATORYPROVIDER ORDERED DPLWYEBVJXXV73/23/2024 7:57 PM [facility] LAB[facility]ATORYSpecimen (Source)Anatomical Location / LateralityCollection Method / VolumeCollection TimeReceived TimeBloodBLOOD SPECIMEN / UnknownVenipuncture / Cuodmsn5510/07/2023 10:23 AM CDT10/07/2023 10:23 AM CDT Narrative Authorizing ProviderResult TypeResult StatusBridget Sarita Childress PACHEMISTRY Final ResultPerforming OrganizationAddressCity/State/ZIP CodePhone Number [facility] [address] [place] [address], [place] * ANTI HCV (04/19/2022 12:15 PM CDT)ComponentValueRef RangeTest MethodAnalysis TimePerformed AtPathologist SignatureHEPATITIS C ANTIBODYNon-Reactive Non-Pewvjjrx23/05/2022 5:09 AM [facility] Comment:Antibodies to HCV not detected; does not exclude the possibility of exposure to HCV.Specimen (Source)Anatomical Location / LateralityCollection Method / VolumeCollection TimeReceived TimeBloodBLOOD SPECIMEN / Unknown Venipuncture / Urevhcb0604/19/2022 12:15 PM CDT106/19/2021 12:18 PM CDT Narrative Authorizing ProviderResult TypeResult StatusBridget Sarita Childress PASEND OUTS Final ResultPerforming OrganizationAddressCity/State/ZIP CodePhone Number [facility] [address] [place] [address], [place] * KIDNEY TRIMMER THIN PREP PAP SCREEN IMAGED (06/29/2019 8:00 AM PHARMACY TECH CUSTOMER SERVICE)ComponentValueRef RangeTest MethodAnalysis TimePerformed AtPathologist SignatureCase Report Gynecologic Cytology Report ? Case: [id number] ? Authorizing Provider: ??Dariana Jean MD ??Collected: ? 06/29/2019 0800 ? Ordering Location: ? [facility] ?Received: ?06/30/2019 0903 ? First Screen: ?Katharine Lyon ? Specimen: ?KIDNEY TRIMMER ThinPrep Vial Screening, Cervical/Vaginal ? 07/08/2019 2:56 PM [facility] INTERPRETATION/RESULTNEGATIVE FOR INTRAEPITHELIAL LESION OR MALIGNANCY (NIL) (none)07/08/2019 2:56 PM [facility] at 1456 CSTSPECIMEN ADEQUACY Satisfactory for evaluation Endocervical component ircbliy9407/08/2019 2:56 PM [facility] LABORATORYHPV REQUESTHPV and PAP07/08/2019 2:56 PM [facility] LABORATORYDate of LMP1/ 2:56 PM [facility] LABORATORYAdditional Lrutqgpwyzb88/23/2020 2:56 PM [facility]ORYComment: Interpreted at [facility] Central Laboratory - [address], [place] [address] Automated NljfutQtivusyqav90/23/2020 2:56 PM [facility] LABORATORYComment:Specimen processed successfully by automated prison officer device, Ident[employer] SolutionsPrep Imaging System, [employer]ANCILLARY TESTING GYNHPV Ordered, Please see separate qoyauf7807/08/2019 2:56 PM [facility]AL LABORATORYNoteThe pap test is a screening technique, not a diagnostic procedure. It is used primarily to screen for squamous cancers and precursor lesions. Published studies have shown that it is subject to both false negative and false positive results. The pap test should not be used as the sole means to diagnose or exclude pre-malignant and malignant lesions.07/08/2019 2:56 PM [facility] LABORATORYSpecimen (Source)Anatomical Location / LateralityCollection Method / VolumeCollection TimeReceived TimeOther (Cervical/Vaginal)06/29/2019 8:00 AM CST06/30/2019 9:03 AM PHARMACY TECH CUSTOMER SERVICE Narrative Authorizing ProviderResult TypeResult StatusIngrid Tamela Jean MD PATHOLOGY/CYTOLOGYFinal ResultPerforming OrganizationAddressCity/State/ZIP Code Phone Number [facility] [address] [place] [address], * SCAN-COLONOSCOPY (06/03/2016 12:00 AM PHARMACY TECH CUSTOMER SERVICE) Narrative Authorizing ProviderResult TypeResult StatusScannerOTHERFinal Result from Last 3 Months or Most Recently Relevant to Health Maintenance Insurance * Guarantor: Tete Leary TypeRelation to PatientDate of BirthPhone Billing [id number] [address] [place] [phone] Advance Directives * Full Code (Latest Code Status on File) Date ActivatedDate EpwzhqldhyjKkddlkwz65/17/2024 2:51 PM06/02/2024 3:15 PM QuestionAnswerCommentsCode Status Discussion:* Unable to Assess Preferences, Provider to review later * Full Code Date ActivatedDate ImckbavpoxsZaofwshk12/17/2024 10:38 AM06/01/2024 2:51 PM QuestionAnswerCommentsCode Status Discussion:* Not Discussed * Full Code Date ActivatedDate InactivatedComments07/23/2023 9:30 AM07/23/2023 8:15 PMQuestion AnswerCommentsCode Status Discussion:* Unable to Assess Preferences, Provider to review later * Full Code Date ActivatedDate InactivatedComments03/05/2022 5:43 AM03/06/2022 2:49 PMQuestion AnswerCommentsCode Status Discussion:* Not Discussed Care Teams Team MemberRelationshipSpecialtyStart DateEnd Date Destiney Childress PA [address] [place] [address] PCP - GeneralPhysician Assistant07/03/23
[2025-06-11 13:20] VITALS: BP 120/77; PULSE 96; RESP 16; TEMP 36.5; O2SAT 96; BMI 44.5
--- NOTE | 2025-06-11 13:28 | ED.GENADULT ---
HPI - General Adult General Date Seen: 06/11/25 Chief complaint: Epistaxis/Nosebleed Stated complaint: nose bleed Time Seen by Provider: 06/11/25 13:27 History of Present Illness HPI narrative: 55 yo F presenting to the ER today with concern for epistaxis. She has a distant history of sinus surgery done several years ago here in [place] than also with a follow-up surgery at [place]. She does not have any history of nasal polyps or significant history of epistaxis. She is not anticoagulated. She did have an episode of nose bleeding that happened about 2 weeks ago and resolved after about an hour. She happened to have an outpatient follow-up with an ENT provider (Dr. Sherman, in [place]). Apparently that time no clear source for her epistaxis was identified. Her ENT did not mention any sign of polyps, tumors, or other anatomic lesions in the patient's nasal cavity. She had been doing well for the past couple weeks and then today she started having another episode of bleeding. She had dark red venous blood gushing out of her left nostril, but not the right. It happened spontaneously today and lasted about an hour. It finally resolved around the time she got here to the ER. She is not having any dizziness or lightheadedness. No shortness of breath. No fever. No nasal trauma. Related Data Home Medications ?Medication ?Instructions ?Recorded ?Confirmed escitalopram oxalate 20 mg tablet 20 mg PO DAILY 10/01/22 01/23/25 lisinopril 10 mg tablet 10 mg PO DAILY 10/01/22 01/23/25 omeprazole 20 mg capsule,delayed 20 mg PO DAILY 10/01/22 01/23/25 release pregabalin 150 mg capsule 150 mg PO 3XD 10/01/22 01/23/25 simvastatin 10 mg tablet 10 mg PO QPM 10/01/22 01/23/25 fluticasone 250 mcg-salmeterol 50 1 ea inhalation BID 01/23/25 01/23/25 mcg/dose blistr powdr for inhalation ipratropium 0.5 mg-albuterol 3 mg ml inhalation 01/23/25 01/23/25 (2.5 mg base)/3 mL nebulization soln meloxicam 15 mg tablet 7.5 mg PO BID PRN 01/23/25 01/23/25 Previous Rx's ?Medication ?Instructions ?Recorded albuterol sulfate 90 mcg/actuation 2 puff inhalation Q4-6H PRN 09/14/24 aerosol inhaler shortness of breath or wheezing #6.7 grams Allergies Allergy/AdvReac Type Severity Reaction Status Date / Time No Known Drug Allergies Allergy Verified 06/11/25 13:19 [facility] Social History Smoking Status: Never smoker Do you use any of these nicotine containing products: None Second hand tobacco smoke exposure: Yes How often do you have a drink containing alcohol: monthly or less How many standard drinks containing alcohol do you have on a typical day: 1 or 2 How often do you have six or more drinks on one occasion: Never AUDIT-C Alcohol total score: 1 Non-prescribed substance use: denies use service: No Exam Narrative: Exam Narrative: Constitutional: Appears well-developed and well-nourished. Alert. Conversant. Non toxic. Polite HENT: Head: Atraumatic. Nose: Externally normal. Right nares normal. In the left nares there is an area that appears to been recently bleeding on the septal surface just about a cm inside from the nares. I do not see any other lesions in the left nostril. No active bleeding. Mouth/Throat: Oral mucosa is clear . Mucous membranes are moist. no trismus. Pharynx normal. Tonsils symmetric. No tonsillar enlargement, erythema, or exudate. Eyes: Conjunctivae normal. EOM normal. Pupils equal, round, and reactive to light. No scleral icterus. Neck: Normal range of motion. Neck supple. No tracheal deviation present. Cardiovascular: Normal rate, regular rhythm. Skin is pink, warm, well perfused with normal brisk cap refill. Pulmonary/Chest: Effort normal. No stridor. No respiratory distress. Musculoskeletal: RUE: Normal range of motion. No tenderness. No deformity LUE: Normal range of motion. No tenderness. No deformity RLE: Normal range of motion. No edema. No tenderness. No deformity LLE: Normal range of motion. No edema. No tenderness. No deformity Neurological: Alert and oriented to person, place, and time. Normal strength. CN II-VII intact. No sensory deficit. GCS eye subscore is 4. GCS verbal subscore is 5. GCS motor subscore is 6. Normal coordination Skin: Skin is warm and dry. No rash noted. No pallor. Normal capillary refill. Psychiatric: Normal mood. Normal affect. Const: Vital Signs, click to edit/add: Vital Signs - 24 hr 06/11/25 13:20 Temperature 97.7 F Pulse Rate [Pulse Oximeter] 96 Respiratory Rate 16 Blood Pressure [Ri ght Upper Arm] 120/77 Pulse Oximetry 96 Oxygen Delivery Me thod Room Air Course Course ED Course: Recheck-after Afrin had a little bit more bleeding from left naris. I can see that the site was in fact from that area just inside the left naris on the septum. We applied some topical lidocaine with 1% epinephrine and direct pressure and bleeding was controlled. I was able to use silver nitrate and cauterized that area. Subsequently bleeding was controlled. Recheck-patient passed ambulation trial here in the ER and has no recurrent bleeding. Vital Signs Vital signs: Initial Vital Signs Temperature 97.7 F 06/11/25 13:20 Temperature Source Temporal Artery Scan 06/11/25 13:20 Pulse Rate 96 06/11/25 13:20 Respiratory Rate 16 06/11/25 13:20 Blood Pressure 120/77 06/11/25 13:20 Blood Pressure Mean 91 06/11/25 13:20 Pulse Oximetry 96 06/11/25 13:20 Oxygen Delivery Method Room Air 06/11/25 13:20 Vital Signs Temperature 97.7 F 06/11/25 13:20 Pulse Rate 96 06/11/25 13:20 Respiratory Rate 16 06/11/25 13:20 Blood Pressure 120/77 06/11/25 13:20 Pulse Oximetry 96 06/11/25 13:20 Oxygen Delivery Method Room Air 06/11/25 13:20 Temperature 97.7 F 06/11/25 13:20 Pulse Rate 96 06/11/25 13:20 Respiratory Rate 16 06/11/25 13:20 Blood Pressure 120/77 06/11/25 13:20 Pulse Oximetry 96 06/11/25 13:20 Oxygen Delivery Method Room Air 06/11/25 13:20 Medical Decision Making MDM Narrative Medical decision making narrative: Pleasant 55-year-old female presenting to the ER today with epistaxis. He does not have a history of much epistaxis over life but has had 2 events this month with about an hours worth of bleeding each. Bleeding had stopped around the time arrival here but did briefly recur. Differential her bleeding is broad. At this point this appears to be an anterior bleed and I can see a site on the left nasal septum that was recently bleeding at arrival and then did briefly rebleed here. We were able to successfully cauterize. Subsequently we had good hemostasis. We did check a CBC which shows normal hemoglobin and platelet count. She is not otherwise anticoagulated. She has no history of coagulopathy or family history of coagulopathy. At this point I do not think she needs to be admitted for serial hemoglobins. We discussed epistaxis care, being gentle with her nose, moisturizing, humidifier, nasal antibiotic ointment or other moisturizing gel. Follow up with ENT for repeat nasal exam. Discussed the risk of rebleeding in the step she can take at home and indications for return to the ER. Questions answered. Lab Data Labs: Lab Results 06/11/25 Range/Units 14:23 WBC 8.26 (4.50-11.00) K/uL RBC 4.46 (4.00-5.20) m/uL Hgb 12.7 (12.0-16.0) gm/dL Hct 41.8 (33.0-51.0) % MCV 94 (80-100) fL MCH 29 (26-34) pg MCHC 30 L (32-36) gm/dL RDW Coeff of Zena 13.1 (11.5-15.5) % Plt Count 275 (140-440) K/uL Neut % (Auto) 56.6 (42.0-72.0) % Lymph % (Auto) 29.3 (20-44) % Addison % (Auto) 8.0 (0.0-11.0) % Eos % (Auto) 5.2 (0.0-7.0) % Baso % (Auto) 0.5 (0.0-3.0) % Neut # (Auto) 4.68 (1.7-7.0) K/uL Lymph # (Auto) 2.42 (0.90-2.90) K/uL Addison # (Auto) 0.70 (0.00-0.90) K/UL Eos # (Auto) 0.43 (0.00-0.50) K/uL Baso # (Auto) 0.04 (0.00-0.30) K/uL Abs Immat Gran (auto) 0.03 (0.00-0.30) K/uL Imm/Tot Granulo (auto) 0.4 % Discharge Plan Discharge Clinical Impression: Epistaxis Patient Disposition: Home, Self-Care Condition: Stable Instructions: Nosebleed (ED) Additional Instructions: As we discussed, please return to the ER right away if you have more episodes of bleeding they are not able controlled with direct pressure at home. Even if you getting better, please recheck with your ENT over the next 5-7 days for repeat nasal exam. Prescriptions: No Action albuterol sulfate 90 mcg/actuation HFA aerosol inhaler 2 puff inhalation Q4-6H PRN (Reason: shortness of breath or wheezing) Qty: 6.7 0RF fluticasone propion-salmeterol 250-50 mcg/dose blister with device 1 ea inhalation BID ipratropium-albuterol 0.5 mg-3 mg(2.5 mg base)/3 mL solution for nebulization inhalation Patient Comments: [NO ORIGINAL SIG] meloxicam 15 mg tablet 7.5 mg PO BID PRN simvastatin 10 mg tablet 10 mg PO QPM lisinopril 10 mg tablet 10 mg PO DAILY omeprazole 20 mg capsule,delayed release(DR/EC) 20 mg PO DAILY escitalopram oxalate 20 mg tablet 20 mg PO DAILY pregabalin 150 mg capsule 150 mg PO 3XD Follow Up/Referrals: Destiney Childress PA-C [Primary Care Provider, Family Practice] Stand Alone Forms: [email or web address] Info Instructions
[2025-06-11 14:31] LABS: Hematocrit* 41.8 % (33.0-51.0); Hemoglobin* 12.7 gm/dL (12.0-16.0); Immature Granulocytes Abs Auto 0.03 K/uL (0.00-0.30); Immature Granulocytes Pct Auto 0.4 %; Lymphocytes Absolute Auto 2.42 K/uL (0.90-2.90); Mean Corpuscular HGB Conc 30 gm/dL (32-36); Mean Corpuscular Hemoglobin 29 pg (26-34); Mean Corpuscular Volume 94 fL (80-100); RDW Coefficient of Variation % 13.1 % (11.5-15.5); Red Blood Count* 4.46 m/uL (4.00-5.20); White Blood Count* 8.26 K/uL (4.50-11.00)
[2025-06-11 14:39] LABS: Slide Review Reflex No
== END 2025-06-11 15:38 | disposition home or self-care (01) ==
PROVIDERS: Emergency Provider Emergency Medicine; PCP Physician Assistant Medical
DX: R04.0 Epistaxis (principal)
CPT/HCPCS: 30901; 36415; 85025; 99282; 99283